=== PATIENT | male | born 1945 | race Caucasian/White ===

== ENCOUNTER 2017-02-11 08:54 | Emergency (ER) | payer MEDICARE, OTHER ==
[~2017-02-11] VITALS: Ht 177.8 cm; Wt 79.4 kg
[~2017-02-11 08:54] MED LIST: [UNRECOGNIZED DRUG - REMARK]
[2017-02-11 09:24] LABS: Urine Bacteria FEW /hpf (None Seen); Urine Blood 2+ /uL (Negative); Urine Mucus FEW (None Seen); Urine WBC 9 /hpf (0 - 3)
[2017-02-11 10:07] LABS: Basophils # (auto) 0 uL; Basophils % (auto) 0.3 % (0.0-2.0); Eosinophils # (auto) 0 uL; Eosinophils % (auto) 0.4 % (0.0-7.0); Hemoglobin 16.9 g/dL (13.5-17.5); Lymphocytes # (auto) 0.8 uL; Lymphocytes % (auto) 7.2 % (10.0-50.0); Mean Corpuscular Hemoglobin 31.3 pg (28.0-32.0); Mean Corpuscular Hgb Conc. 33.8 g/dL (32.0-36.0); Mean Corpuscular Volume 92.9 fL (80.0-100.0); Monocytes # (auto) 0.5 uL; Monocytes % (auto) 4.5 % (0.0-12.0); Neutrophils # (auto) 9.4 uL; Neutrophils % (auto) 87.6 % (37.0-80.0); Platelet Count (auto) 256 10^3/uL (140-450); Red Blood Cells 5.39 10^6/uL (4.5-5.90); Red Cell Distribution Width 14.8 % (11.8-14.3); White Blood Cell 10.7 10^3/uL (4.4-10.8)
[2017-02-11 10:32] LABS: Albumin 3.8 g/dL (3.4-5.0); BUN/Creatinine Ratio 10.9; Bilirubin, Total 0.4 mg/dL (0.2-1.0); Calcium 9.1 mg/dL (8.5-10.1); Potassium 4.5 mmol/L (3.5-5.1); Total Protein 7.6 g/dL (6.4-8.2)
[2017-02-11 23:23] VITALS: BP 173/88
== END 2017-02-11 23:47 | disposition home or self-care (01) ==
LOC: ER 08:54
DX: N13.2 Hydronephrosis with renal and ureteral calculous obstruction (principal); N39.0 Urinary tract infection, site not specified; J44.9 Chronic obstructive pulmonary disease, unspecified; I10 Essential (primary) hypertension; F17.210 Nicotine dependence, cigarettes, uncomplicated
CPT/HCPCS: 36415; 74176; 80053; 81001; 85025

== ENCOUNTER 2020-04-24 05:10 | Inpatient (IN) | payer OTHER ==
[~2020-04-24] VITALS: Ht 177.8 cm; Wt 68.0 kg
[2020-04-24] MEDS ORDERED: IPRATROPIUM BROM 0.5 MG/2.5ML INH SOL HHN ONE (05:30)
[2020-04-24] MEDS ORDERED: ALBUTEROL SULF 2.5 MG/0.5ML(0.5%) NEB SOLN HHN ONE (05:30)
[2020-04-24] MEDS ORDERED: DexAMETHasone INJECTION 10 MG in D5W 5% 50 ML IV ONE (05:30)
[2020-04-24 06:29] LABS: Basophils # (auto) 0 10 ^3/uL (0-0.2); Basophils % (auto) 0.3 % (0.0-2.0); Eosinophils # (auto) 0 10 ^3/uL (0-0.8); Eosinophils % (auto) 0.1 % (0.0-7.0); Hematocrit 33.4 % (41.0-53.0); Hemoglobin 11.3 g/dL (13.5-17.5); Lymphocytes # (auto) 0.2 10 ^3/uL (0.4-5.4); Lymphocytes % (auto) 1.8 % (10.0-50.0); Mean Corpuscular Hemoglobin 32.5 pg (28.0-32.0); Mean Corpuscular Hgb Conc. 33.7 g/dL (32.0-36.0); Mean Corpuscular Volume 96.7 fL (80.0-100.0); Monocytes # (auto) 0.6 10 ^3/uL (0-1.3); Neutrophils # (auto) 11.7 10 ^3/uL (1.6-8.6); Neutrophils % (auto) 92.8 % (37.0-80.0); Platelet Count (auto) 198 10^3/uL (140-450); Red Blood Cells 3.46 10^6/uL (4.5-5.90); Red Cell Distribution Width 18.3 % (11.8-14.3); White Blood Cell 12.7 10^3/uL (4.4-10.8)
[2020-04-24 06:45] LABS: INR 1.56 (0.9-1.15); Partial Thromboplastin Time 40.1 sec (23.0-31.2)
[2020-04-24 06:49] LABS: Albumin 2.2 g/dL (3.4-5.0); Calcium 8.9 mg/dL (8.5-10.1); Magnesium 2.3 mg/dL (1.6-2.6); Potassium 4.1 mmol/L (3.5-5.1)
[2020-04-24 06:51] LABS: Lactic Acid w/Reflex 6.6 mmol/L (0.4-2.0)
[2020-04-24 06:55] LABS: BUN/Creatinine Ratio 20.8; Bilirubin, Total 0.5 mg/dL (0.2-1.0); Total Protein 7.5 g/dL (6.4-8.2)
[2020-04-24] MEDS ORDERED: ALBUMIN 5% 50 ML IV ONE (08:15)
[2020-04-24] MEDS ORDERED: DOCUSATE SOD 100 MG CAP PO PRN (08:15)
[2020-04-24] MEDS ORDERED: ONDANSETRON HCL 4 MG/2 ML VIAL IV PRN (08:15)
[2020-04-24] MEDS ORDERED: ACETAMINOPHEN 325 MG TAB PO PRN (08:15)
[2020-04-24] MEDS ORDERED: NITROGLYCERIN 0.4 MG SL TAB SL PRN (08:15)
[2020-04-24] MEDS ORDERED: HYDROcodone-ACET 5/325MG TAB PO PRN (08:15)
[2020-04-24] MEDS ORDERED: MORPHINE SULF INJ 2 MG/ML SYRINGE 1ML IV PRN (08:15)
[2020-04-24] MEDS: FAMOTIDINE (10MG/ML) 2ML VL IV SCH ×2 (09:14→21:14)
[2020-04-24] MEDS: ZINC SULFATE 220mg CAP or TAB PO SCH (09:14)
[2020-04-24] MEDS: ENOXAPARIN SOD 40 MG/0.4 ML SYRINGE SC SCH (09:15)
[2020-04-24] MEDS: MULTIPLE VITAMIN TAB PO SCH (09:15)
[2020-04-24] MEDS: CHOLECALCIFEROL (VITD3) 1,000UNIT=25mCg TAB PO SCH (09:15)
[2020-04-24] MEDS: ASCORBIC ACID 500 MG TAB PO SCH ×2 (09:15→21:16)
[2020-04-24] MEDS ORDERED: DexAMETHasone INJECTION 10 MG in D5W 5% 50 ML IV SCH (10:00)
[2020-04-24] MEDS ORDERED: IOPAMIDOL 76 % (ISOVUE-370) 100ML BTL IV ONE (11:47)
[2020-04-24] MEDS ORDERED: IPRATROPIUM BROM 0.5 MG/2.5ML INH SOL NEB SCH (12:00)
[2020-04-24] MEDS: ALBUTEROL SULF 2.5 MG/0.5ML(0.5%) NEB SOLN NEB SCH ×4 (12:33→22:51)
[2020-04-24 12:34] LABS: Lactic Acid w/Reflex 2.9 mmol/L (0.4-2.0)
[2020-04-24 14:30] VITALS: BP 104/63
[2020-04-24] MEDS ORDERED: DEXTROSE (50%) 50ML SYRG IV PRN (14:45)
[2020-04-24] MEDS: methylPREDNISolone SOD SUCC 40 MG/ML VL IV SCH ×2 (16:55→21:14)
[2020-04-24] MEDS: PIPERACILLIN-TAZOB 3.375GM 100 ML IV SCH ×2 (16:55→21:14)
[2020-04-24] MEDS: ACCU-CHEK COMFORT CURVE STRIP VI SCH ×2 (18:09→21:16)
[2020-04-24] MEDS: InsuLIN REG 1unit/0.01ml Soln (100units/ml) SC SCH ×2 (18:11→21:04)
[2020-04-24] MEDS: IPRATROPIUM BROM 0.5 MG/2.5ML INH SOL NEB SCH ×2 (18:14→22:51)
[2020-04-24] MEDS: TICAGRELOR 90 MG TAB PO SCH (21:15)
[2020-04-24] MEDS: ATORVASTATIN 20 MG TAB PO SCH (21:15)
[2020-04-24] MEDS: RIVAROXABAN 10 MG TAB PO SCH (21:16)
[2020-04-24 22:34] VITALS: BP 119/66
[2020-04-25 05:00] VITALS: BP 131/71
[2020-04-25] MEDS: InsuLIN REG 1unit/0.01ml Soln (100units/ml) SC SCH ×4 (05:11→22:00)
[2020-04-25] MEDS: ACCU-CHEK COMFORT CURVE STRIP VI SCH ×4 (05:14→22:22)
[2020-04-25] MEDS: PIPERACILLIN-TAZOB 3.375GM 100 ML IV SCH (05:14)
[2020-04-25] MEDS: methylPREDNISolone SOD SUCC 40 MG/ML VL IV SCH ×3 (05:15→22:20)
[2020-04-25] MEDS: IPRATROPIUM BROM 0.5 MG/2.5ML INH SOL NEB SCH ×5 (06:51→22:16)
[2020-04-25] MEDS: ALBUTEROL SULF 2.5 MG/0.5ML(0.5%) NEB SOLN NEB SCH ×5 (06:51→22:16)
[2020-04-25 06:58] LABS: Basophils # (auto) 0 10 ^3/uL (0-0.2); Basophils % (auto) 0.1 % (0.0-2.0); Eosinophils # (auto) 0 10 ^3/uL (0-0.8); Hematocrit 28.6 % (41.0-53.0); Hemoglobin 9.5 g/dL (13.5-17.5); Lymphocytes # (auto) 0.3 10 ^3/uL (0.4-5.4); Lymphocytes % (auto) 2.9 % (10.0-50.0); Mean Corpuscular Hemoglobin 31.6 pg (28.0-32.0); Mean Corpuscular Hgb Conc. 33.3 g/dL (32.0-36.0); Mean Corpuscular Volume 94.8 fL (80.0-100.0); Monocytes # (auto) 0.2 10 ^3/uL (0-1.3); Monocytes % (auto) 2.2 % (0.0-12.0); Neutrophils # (auto) 8.7 10 ^3/uL (1.6-8.6); Neutrophils % (auto) 94.8 % (37.0-80.0); Nucleated Red Blood Cells % 0.1 %; Platelet Count (auto) 223 10^3/uL (140-450); Red Blood Cells 3.02 10^6/uL (4.5-5.90); Red Cell Distribution Width 17.9 % (11.8-14.3); White Blood Cell 9.2 10^3/uL (4.4-10.8)
[2020-04-25 07:06] LABS: INR 1.23 (0.9-1.15)
[2020-04-25 07:20] LABS: Calcium 8.9 mg/dL (8.5-10.1); Magnesium 2.4 mg/dL (1.6-2.6); Potassium 4.3 mmol/L (3.5-5.1)
[2020-04-25 07:27] LABS: Bilirubin, Total 0.4 mg/dL (0.2-1.0); Total Protein 6.7 g/dL (6.4-8.2)
[2020-04-25 07:47] LABS: BUN/Creatinine Ratio 32.6
[2020-04-25 08:00] VITALS: BP 108/59
[2020-04-25] MEDS: ASCORBIC ACID 500 MG TAB PO SCH ×2 (09:57→22:21)
[2020-04-25] MEDS: ZINC SULFATE 220mg CAP or TAB PO SCH (09:57)
[2020-04-25] MEDS: ASPirin-EC 81 mg tab PO SCH (09:57)
[2020-04-25] MEDS: TICAGRELOR 90 MG TAB PO SCH ×2 (09:58→22:21)
[2020-04-25] MEDS: CHOLECALCIFEROL (VITD3) 1,000UNIT=25mCg TAB PO SCH (09:58)
[2020-04-25] MEDS: MULTIPLE VITAMIN TAB PO SCH (09:58)
[2020-04-25] MEDS: RIVAROXABAN 10 MG TAB PO SCH ×2 (09:58→22:22)
[2020-04-25] MEDS: ENOXAPARIN SOD 40 MG/0.4 ML SYRINGE SC SCH (09:59)
[2020-04-25] MEDS ORDERED: CLOPIDOGREL BISULFATE 75 MG TAB PO SCH (10:00)
[2020-04-25] MEDS ORDERED: MEROPENEM 500MG IVPB 50 ML IV SCH (10:00)
[2020-04-25] MEDS ORDERED: MEROPENEM 500MG IVPB 50 ML IV ONE (10:00)
[2020-04-25] MEDS: FAMOTIDINE (10MG/ML) 2ML VL IV SCH ×2 (11:12→22:20)
[2020-04-25 12:00] VITALS: BP 124/65
[2020-04-25] MEDS: MEROPENEM 1GM IVPB 100 ML IV SCH ×2 (12:00→19:23)
[2020-04-25] MEDS ORDERED: ERGOCALCIFEROL 50,000 UNIT(1.25MG) CAP PO SCH (13:45)
[2020-04-25] MEDS ORDERED: TPN PER PHARMACY 0 ML IV SCH (13:45)
[2020-04-25 16:00] VITALS: BP 121/64
[2020-04-25 20:00] VITALS: BP 102/62
[2020-04-25] MEDS ORDERED: AMINO ACID INFUSION IN D10W 2,000 ML IV NR (20:00)
[2020-04-25 22:00] VITALS: BP 102/62
[2020-04-25] MEDS: ATORVASTATIN 20 MG TAB PO SCH (22:21)
[2020-04-25] MEDS: INSULIN LANTUS (GLARGINE) 1 /0.01ml (100units/ml) SC SCH (22:30)
[2020-04-25] MEDS: MORPHINE SULFATE 4 MG/ML SYR/VIAL IV PRN (22:34)
[2020-04-25 23:25] LABS: Urine Amorphous Crystal FEW /hpf (None Seen); Urine Bacteria FEW /hpf (None Seen); Urine Blood Negative /uL (Negative); Urine Hyaline Cast FEW /lpf (0 - 2); Urine Mucus FEW (None Seen); Urine Specific Gravity 1.034 (1.001-1.035); Urine WBC 6 /hpf (0 - 3)
[2020-04-26] MEDS ORDERED: DEXTROSE (50%) 50ML SYRG IV SCH
[2020-04-26] MEDS: InsuLIN REG 1unit/0.01ml Soln (100units/ml) SC SCH ×5 (00:02→23:59)
[2020-04-26] MEDS: MEROPENEM 1GM IVPB 100 ML IV SCH ×3 (03:00→18:49)
[2020-04-26 05:00] VITALS: BP 140/84
[2020-04-26] MEDS: ALBUTEROL SULF 2.5 MG/0.5ML(0.5%) NEB SOLN NEB SCH ×5 (05:59→21:56)
[2020-04-26] MEDS: IPRATROPIUM BROM 0.5 MG/2.5ML INH SOL NEB SCH ×5 (05:59→21:56)
[2020-04-26] MEDS: ACCU-CHEK COMFORT CURVE STRIP VI SCH ×5 (06:13→23:56)
[2020-04-26] MEDS: methylPREDNISolone SOD SUCC 40 MG/ML VL IV SCH ×3 (06:14→22:24)
[2020-04-26 06:21] LABS: Potassium 4.5 mmol/L (3.5-5.1)
[2020-04-26 06:34] LABS: BUN/Creatinine Ratio 37.2; Bilirubin, Total 0.2 mg/dL (0.2-1.0); Calcium 8.7 mg/dL (8.5-10.1); Magnesium 2.3 mg/dL (1.6-2.6); Phosphorus 3.7 mg/dL (2.5-4.90); Pre Albumin 14.1 mg/dL (20.0-40.0); Total Protein 6.1 g/dL (6.4-8.2)
[2020-04-26 08:00] VITALS: BP 123/74
[2020-04-26] MEDS: FAMOTIDINE (10MG/ML) 2ML VL IV SCH ×2 (09:20→22:24)
[2020-04-26] MEDS: CHOLECALCIFEROL (VITD3) 2,000 UNIT CAP/TAB PO SCH (09:22)
[2020-04-26] MEDS: ASCORBIC ACID 500 MG TAB PO SCH ×2 (09:23→22:25)
[2020-04-26] MEDS: ASPirin-EC 81 mg tab PO SCH (09:23)
[2020-04-26] MEDS: ZINC SULFATE 220mg CAP or TAB PO SCH (09:23)
[2020-04-26] MEDS: MULTIPLE VITAMIN TAB PO SCH (09:24)
[2020-04-26] MEDS: TICAGRELOR 90 MG TAB PO SCH ×2 (09:24→22:24)
[2020-04-26] MEDS: RIVAROXABAN 10 MG TAB PO SCH ×2 (09:25→22:25)
[2020-04-26] MEDS ORDERED: FUROSEMIDE 20 MG/2 ML VIAL IV ONE (10:45)
[2020-04-26 11:57] VITALS: BP 141/76
[2020-04-26] MEDS ORDERED: FLORASTOR (S. BOULARDII) 250 MG CAP PO ONE (13:26)
[2020-04-26 16:00] VITALS: BP 124/76
[2020-04-26] MEDS ORDERED: TAM04C PO (16:32)
[2020-04-26] MEDS ORDERED: PRAV20TA3 PO (16:32)
[2020-04-26] MEDS ORDERED: TICA1TAB PO (16:32)
[2020-04-26] MEDS ORDERED: METO25TA5 PO (16:32)
[2020-04-26] MEDS ORDERED: MIRT1TAB38 PO (16:32)
[2020-04-26] MEDS ORDERED: RIVSET PO (16:37)
[2020-04-26] MEDS ORDERED: FLUT1INH4 IN (16:37)
[2020-04-26] MEDS ORDERED: OXYM0.0579 (16:37)
[2020-04-26] MEDS ORDERED: NITR0.4D5 TD (16:37)
[2020-04-26] MEDS ORDERED: LISI-285 PO (16:37)
[2020-04-26] MEDS ORDERED: UMEC1AER IN (16:37)
[2020-04-26 20:00] VITALS: BP 133/78
[2020-04-26] MEDS ORDERED: TPN PER PHARMACY IV NR ×9 (20:00)
[2020-04-26 22:00] VITALS: BP 133/78
[2020-04-26] MEDS: ATORVASTATIN 20 MG TAB PO SCH (22:25)
[2020-04-26] MEDS: INSULIN LANTUS (GLARGINE) 1 /0.01ml (100units/ml) SC SCH (22:28)
[2020-04-27] MEDS: MORPHINE SULFATE 4 MG/ML SYR/VIAL IV PRN (00:05)
[2020-04-27] MEDS: MEROPENEM 1GM IVPB 100 ML IV SCH ×3 (03:04→17:44)
[2020-04-27 04:41] VITALS: BP 144/75
[2020-04-27] MEDS: ACCU-CHEK COMFORT CURVE STRIP VI SCH ×4 (06:00→22:29)
[2020-04-27] MEDS: methylPREDNISolone SOD SUCC 40 MG/ML VL IV SCH ×3 (06:00→22:26)
[2020-04-27] MEDS: InsuLIN REG 1unit/0.01ml Soln (100units/ml) SC SCH ×4 (06:05→22:28)
[2020-04-27 06:39] LABS: Basophils # (auto) 0 10 ^3/uL (0-0.2); Eosinophils # (auto) 0 10 ^3/uL (0-0.8); Hematocrit 26.8 % (41.0-53.0); Hemoglobin 9.1 g/dL (13.5-17.5); Lymphocytes # (auto) 0.2 10 ^3/uL (0.4-5.4); Mean Corpuscular Hemoglobin 32.1 pg (28.0-32.0); Mean Corpuscular Volume 94.3 fL (80.0-100.0); Monocytes # (auto) 0.3 10 ^3/uL (0-1.3); Monocytes % (auto) 4.1 % (0.0-12.0); Neutrophils # (auto) 7.3 10 ^3/uL (1.6-8.6); Neutrophils % (auto) 93.9 % (37.0-80.0); Nucleated Red Blood Cells % 0.1 %; Platelet Count (auto) 225 10^3/uL (140-450); Red Blood Cells 2.85 10^6/uL (4.5-5.90); Red Cell Distribution Width 17.9 % (11.8-14.3); White Blood Cell 7.8 10^3/uL (4.4-10.8)
[2020-04-27 06:46] LABS: Calcium 8.1 mg/dL (8.5-10.1); Potassium 3.9 mmol/L (3.5-5.1)
[2020-04-27 06:51] LABS: Bilirubin, Total 0.3 mg/dL (0.2-1.0); Phosphorus 2.7 mg/dL (2.5-4.90)
[2020-04-27] MEDS: IPRATROPIUM BROM 0.5 MG/2.5ML INH SOL NEB SCH ×5 (07:00→22:00)
[2020-04-27] MEDS: ALBUTEROL SULF 2.5 MG/0.5ML(0.5%) NEB SOLN NEB SCH ×5 (07:00→22:00)
[2020-04-27 08:57] VITALS: BP 150/79
[2020-04-27] MEDS: ZINC SULFATE 220mg CAP or TAB PO SCH (09:04)
[2020-04-27] MEDS: ASPirin-EC 81 mg tab PO SCH (09:04)
[2020-04-27] MEDS: TICAGRELOR 90 MG TAB PO SCH ×2 (09:04→22:26)
[2020-04-27] MEDS: FAMOTIDINE (10MG/ML) 2ML VL IV SCH ×2 (09:04→22:24)
[2020-04-27] MEDS: FLORASTOR (S. BOULARDII) 250 MG CAP PO SCH (09:05)
[2020-04-27] MEDS: CHOLECALCIFEROL (VITD3) 2,000 UNIT CAP/TAB PO SCH (09:05)
[2020-04-27] MEDS: ASCORBIC ACID 500 MG TAB PO SCH ×2 (09:05→22:26)
[2020-04-27] MEDS: MULTIPLE VITAMIN TAB PO SCH (09:05)
[2020-04-27] MEDS: RIVAROXABAN 10 MG TAB PO SCH ×2 (09:06→22:27)
[2020-04-27] MEDS ORDERED: SACC250C PO (10:36)
[2020-04-27] MEDS ORDERED: CHOL1CAP47 PO (10:36)
[2020-04-27] MEDS ORDERED: PANT40TA2 PO (10:48)
[2020-04-27] MEDS ORDERED: PRED20TA2 PO (10:59)
[2020-04-27 12:43] VITALS: BP 156/82
[2020-04-27 16:23] VITALS: BP 141/76
[2020-04-27 16:40] VITALS: BP 141/80
[2020-04-27] MEDS ORDERED: TPN PER PHARMACY IV NR ×12 (20:00)
[2020-04-27 21:46] VITALS: BP 122/73
[2020-04-27] MEDS: ATORVASTATIN 20 MG TAB PO SCH (22:26)
[2020-04-27] MEDS: INSULIN LANTUS (GLARGINE) 1 /0.01ml (100units/ml) SC SCH (22:28)
[2020-04-28] MEDS: MEROPENEM 1GM IVPB 100 ML IV SCH ×2 (03:21→10:25)
[2020-04-28 05:00] VITALS: BP 150/81
[2020-04-28] MEDS: IPRATROPIUM BROM 0.5 MG/2.5ML INH SOL NEB SCH (06:38)
[2020-04-28] MEDS: ALBUTEROL SULF 2.5 MG/0.5ML(0.5%) NEB SOLN NEB SCH (06:38)
[2020-04-28] MEDS: methylPREDNISolone SOD SUCC 40 MG/ML VL IV SCH (06:57)
[2020-04-28] MEDS: InsuLIN REG 1unit/0.01ml Soln (100units/ml) SC SCH ×2 (06:58→12:13)
[2020-04-28] MEDS: ACCU-CHEK COMFORT CURVE STRIP VI SCH ×2 (06:59→12:12)
[2020-04-28 07:18] LABS: Albumin 1.9 g/dL (3.4-5.0); Calcium 8.1 mg/dL (8.5-10.1); Magnesium 2.2 mg/dL (1.6-2.6)
[2020-04-28 07:23] LABS: BUN/Creatinine Ratio 33.3; Bilirubin, Total 0.3 mg/dL (0.2-1.0); Phosphorus 2.6 mg/dL (2.5-4.90); Total Protein 5.8 g/dL (6.4-8.2)
[2020-04-28 09:00] VITALS: BP 153/76
[2020-04-28] MEDS: ASPirin-EC 81 mg tab PO SCH (10:00)
[2020-04-28] MEDS: FAMOTIDINE (10MG/ML) 2ML VL IV SCH (10:00)
[2020-04-28] MEDS: TICAGRELOR 90 MG TAB PO SCH (10:00)
[2020-04-28] MEDS: ASCORBIC ACID 500 MG TAB PO SCH (10:00)
[2020-04-28] MEDS: MULTIPLE VITAMIN TAB PO SCH (10:00)
[2020-04-28] MEDS: ZINC SULFATE 220mg CAP or TAB PO SCH (10:00)
[2020-04-28] MEDS: FLORASTOR (S. BOULARDII) 250 MG CAP PO SCH (10:00)
[2020-04-28] MEDS: RIVAROXABAN 10 MG TAB PO SCH (10:01)
[2020-04-28] MEDS: CHOLECALCIFEROL (VITD3) 2,000 UNIT CAP/TAB PO SCH (10:01)
[2020-04-28 13:00] VITALS: BP 149/68
== END 2020-04-28 13:55 | disposition home health service (06) | DRG 871 ==
LOC: ER 05:10 → EDBD 05:10 → TELE 05:11 → TELE-CENTR 20:30
PROVIDERS: ADMIT Nurse Practitioner Family; ATTEND Internal Medicine
PROC: 3E0436Z Introduction of Nutritional Substance into Central Vein, Percutaneous Approach (ICD-10-PCS; principal; 2020-04-26)
DX: A41.9 Sepsis, unspecified organism (principal); J96.21 Acute and chronic respiratory failure with hypoxia; J18.9 Pneumonia, unspecified organism; I21.A1 Myocardial infarction type 2; D68.9 Coagulation defect, unspecified; C34.90 Malignant neoplasm of unspecified part of unspecified bronchus or lung; C25.9 Malignant neoplasm of pancreas, unspecified; C78.7 Secondary malignant neoplasm of liver and intrahepatic bile duct; J84.10 Pulmonary fibrosis, unspecified; E88.09 Other disorders of plasma-protein metabolism, not elsewhere classified; E11.65 Type 2 diabetes mellitus with hyperglycemia; Z86.16 Personal history of COVID-19; I25.10 Atherosclerotic heart disease of native coronary artery without angina pectoris; Z20.822 Contact with and (suspected) exposure to COVID-19; D63.8 Anemia in other chronic diseases classified elsewhere; E55.9 Vitamin D deficiency, unspecified; F17.210 Nicotine dependence, cigarettes, uncomplicated; I10 Essential (primary) hypertension; J43.9 Emphysema, unspecified; Z79.84 Long term (current) use of oral hypoglycemic drugs; Z80.8 Family history of malignant neoplasm of other organs or systems; Z95.5 Presence of coronary angioplasty implant and graft; Z99.81 Dependence on supplemental oxygen
CPT/HCPCS: 36415; 36600; 71045; 71275; 80053; 80061; 81001; 82040; 82306; 82805; 82962; 83036; 83605; 83735; 83880; 84100; 84443; 84478; 84484; 85025; 85379; 85610; 85730; 86141; 87040; 87070; 87077; 87081; 87205; 87426; 93005; 93970; 94640; 96365; 96367; 96372; G0378; J1100; J1815; J2185; J2543; J3490; J7060; J7131

== ENCOUNTER 2020-05-13 11:00 | Inpatient (IN) | payer OTHER ==
[~2020-05-13] VITALS: Ht 172.7 cm; Wt 68.5 kg
[~2020-05-13 11:00] MED LIST changes: +CHOL1CAP47 PO; +FLUT1INH4 IN; +LISI-285 PO; +METO25TA5 PO; +MIRT1TAB38 PO; +NITR0.4D5 TD; +OXYM0.0579; +PANT40TA2 PO; +PRAV20TA3 PO; +PRED20TA2 PO; +RIVSET PO; +SACC250C PO; +TAM04C PO; +TICA1TAB PO; +UMEC1AER IN; -[UNRECOGNIZED DRUG - REMARK]
[2020-05-13] MEDS ORDERED: SODIUM CHLORIDE 0.9% 1,000 ML IV ONE ×2 (11:45→18:00)
[2020-05-13] MEDS ORDERED: ACETAMINOPHEN 500 MG TAB PO ONE (12:00)
[2020-05-13 12:28] LABS: Basophils # (auto) 0 10 ^3/uL (0-0.2); Basophils % (auto) 0.3 % (0.0-2.0); Eosinophils # (auto) 0.3 10 ^3/uL (0-0.8); Eosinophils % (auto) 3.5 % (0.0-7.0); Hematocrit 31.1 % (41.0-53.0); Hemoglobin 10.2 g/dL (13.5-17.5); Lymphocytes # (auto) 0.3 10 ^3/uL (0.4-5.4); Lymphocytes % (auto) 3.4 % (10.0-50.0); Mean Corpuscular Hemoglobin 30.4 pg (28.0-32.0); Mean Corpuscular Hgb Conc. 32.7 g/dL (32.0-36.0); Monocytes # (auto) 0.4 10 ^3/uL (0-1.3); Monocytes % (auto) 5.6 % (0.0-12.0); Neutrophils # (auto) 6.9 10 ^3/uL (1.6-8.6); Neutrophils % (auto) 87.2 % (37.0-80.0); Nucleated Red Blood Cells % 0.1 %; Platelet Count (auto) 199 10^3/uL (140-450); Red Blood Cells 3.35 10^6/uL (4.5-5.90); Red Cell Distribution Width 17.5 % (11.8-14.3); White Blood Cell 7.9 10^3/uL (4.4-10.8)
[2020-05-13 12:45] LABS: Albumin 2.4 g/dL (3.4-5.0); BUN/Creatinine Ratio 12.5; Calcium 8.4 mg/dL (8.5-10.1); Magnesium 1.8 mg/dL (1.6-2.6)
[2020-05-13 12:47] LABS: INR 1.24 (0.9-1.15); Lactic Acid w/Reflex 2.4 mmol/L (0.4-2.0); Partial Thromboplastin Time 34.9 sec (23.0-31.2)
[2020-05-13 12:50] LABS: Bilirubin, Total 0.4 mg/dL (0.2-1.0); Total Protein 7.1 g/dL (6.4-8.2)
[2020-05-13 13:43] LABS: Urine Amorphous Crystal FEW /hpf (None Seen); Urine Bacteria FEW /hpf (None Seen); Urine Blood TRACE /uL (Negative); Urine Specific Gravity 1.013 (1.001-1.035); Urine WBC 2 /hpf (0 - 3)
[2020-05-13] MEDS ORDERED: cefTRIAXone 1GM/50ML D5W 50 ML IV ONE ×2 (15:30)
[2020-05-13] MEDS: ALBUTEROL SULF 2.5 MG/0.5ML(0.5%) NEB SOLN NEB SCH (18:00)
[2020-05-13] MEDS ORDERED: MORPHINE SULF INJ 2 MG/ML SYRINGE 1ML IV PRN (18:00)
[2020-05-13] MEDS ORDERED: VANCOMYCIN PER PHARMACY 0 MG IV SCH (18:00)
[2020-05-13] MEDS ORDERED: NITROGLYCERIN 0.4 MG SL TAB SL PRN (18:00)
[2020-05-13] MEDS: IPRATROPIUM BROM 0.5 MG/2.5ML INH SOL NEB SCH (18:00)
[2020-05-13] MEDS ORDERED: ONDANSETRON HCL 4 MG/2 ML VIAL IV PRN (18:00)
[2020-05-13] MEDS ORDERED: BUDESONIDE (INHALATION) 0.5 MG/2 ML NEB ONE (18:18)
[2020-05-13] MEDS ORDERED: IPRATROPIUM BROM 0.5 MG/2.5ML INH SOL ONE (18:18)
[2020-05-13] MEDS ORDERED: ALBUTEROL SULF 2.5 MG/0.5ML(0.5%) NEB SOLN ONE (18:18)
[2020-05-13] MEDS: TAMSULOSIN HYDROCHLORIDE 0.4 MG CAP PO SCH (18:29)
[2020-05-13 18:42] VITALS: BP 130/93
[2020-05-13] MEDS ORDERED: IOHEXOL 350 MG/ML 100ML IJ ONE ×2 (18:56→19:18)
[2020-05-13] MEDS: VANCOMYCIN 1GM/250ML 250 ML IV SCH (20:33)
[2020-05-13 22:10] VITALS: BP 154/79
[2020-05-13] MEDS: MEROPENEM 1GM IVPB 100 ML IV SCH (22:39)
[2020-05-13] MEDS: ACETAMINOPHEN 325 MG TAB PO PRN (22:39)
[2020-05-13] MEDS: METOPROLOL TARTRATE 25 MG TAB PO SCH (22:40)
[2020-05-13] MEDS: TICAGRELOR 90 MG TAB PO SCH (23:21)
[2020-05-13 23:39] VITALS: BP 154/79
[2020-05-14] MEDS: VANCOMYCIN 1GM/250ML 250 ML IV SCH (05:00)
[2020-05-14 05:04] VITALS: BP 116/66
[2020-05-14] MEDS: MEROPENEM 1GM IVPB 100 ML IV SCH ×3 (05:40→22:20)
[2020-05-14] MEDS: ALBUTEROL SULF 2.5 MG/0.5ML(0.5%) NEB SOLN NEB SCH ×3 (05:53→17:42)
[2020-05-14] MEDS: IPRATROPIUM BROM 0.5 MG/2.5ML INH SOL NEB SCH ×3 (05:53→17:41)
[2020-05-14] MEDS: BUDESONIDE (INHALATION) 0.5 MG/2 ML NEB NEB SCH ×2 (05:54→17:42)
[2020-05-14 07:24] LABS: Basophils # (auto) 0 10 ^3/uL (0-0.2); Basophils % (auto) 0.2 % (0.0-2.0); Eosinophils # (auto) 0.1 10 ^3/uL (0-0.8); Eosinophils % (auto) 1.9 % (0.0-7.0); Hematocrit 31.2 % (41.0-53.0); Hemoglobin 10.4 g/dL (13.5-17.5); Lymphocytes # (auto) 0.2 10 ^3/uL (0.4-5.4); Lymphocytes % (auto) 3.2 % (10.0-50.0); Mean Corpuscular Hemoglobin 30.8 pg (28.0-32.0); Mean Corpuscular Hgb Conc. 33.4 g/dL (32.0-36.0); Mean Corpuscular Volume 92.5 fL (80.0-100.0); Monocytes # (auto) 0.4 10 ^3/uL (0-1.3); Monocytes % (auto) 6.9 % (0.0-12.0); Neutrophils # (auto) 5.5 10 ^3/uL (1.6-8.6); Neutrophils % (auto) 87.8 % (37.0-80.0); Platelet Count (auto) 156 10^3/uL (140-450); Red Blood Cells 3.37 10^6/uL (4.5-5.90); Red Cell Distribution Width 17.6 % (11.8-14.3); White Blood Cell 6.3 10^3/uL (4.4-10.8)
[2020-05-14 07:43] LABS: BUN/Creatinine Ratio 15.4; Calcium 8.5 mg/dL (8.5-10.1); Potassium 4.3 mmol/L (3.5-5.1)
[2020-05-14] MEDS: Ensure Enlive Chocolate 8oz Bottle PO SCH ×3 (08:00→18:00)
[2020-05-14 09:00] VITALS: BP 123/60
[2020-05-14] MEDS: ACETAMINOPHEN 325 MG TAB PO PRN (09:55)
[2020-05-14] MEDS: PANTOPRAZOLE 40 MG TAB PO SCH (09:55)
[2020-05-14] MEDS: METOPROLOL TARTRATE 25 MG TAB PO SCH ×2 (09:56→22:00)
[2020-05-14] MEDS: FLORASTOR (S. BOULARDII) 250 MG CAP PO SCH (09:56)
[2020-05-14] MEDS: FAMOTIDINE 20 MG TAB PO SCH (09:56)
[2020-05-14] MEDS: TICAGRELOR 90 MG TAB PO SCH ×2 (09:56→22:21)
[2020-05-14] MEDS: methylPREDNISolone SOD SUCC 40 MG/ML VL IV SCH ×2 (11:14→22:20)
[2020-05-14] MEDS ORDERED: SODIUM CHLORIDE 0.9% 500 ML IV ONE (11:45)
[2020-05-14] MEDS ORDERED: PNEUMOCOCCAL VACC POLYS 25 MCG/0.5 ML VIAL IM ONE (12:00)
[2020-05-14 12:24] VITALS: BP 88/48
[2020-05-14] MEDS ORDERED: VANCOMYCIN 1GM/250ML 250 ML IV SCH ×2 (13:00→16:00)
[2020-05-14 17:00] VITALS: BP 95/54
[2020-05-14] MEDS: RIVAROXABAN 20 MG TAB PO SCH (18:27)
[2020-05-14] MEDS: TAMSULOSIN HYDROCHLORIDE 0.4 MG CAP PO SCH (18:27)
[2020-05-14 22:00] VITALS: BP 108/51
[2020-05-14] MEDS: PRAVASTATIN SODIUM 20 MG TAB PO SCH (22:22)
[2020-05-15] MEDS: VANCOMYCIN 1GM/250ML 250 ML IV SCH ×2 (01:51→11:11)
[2020-05-15 05:00] VITALS: BP 120/69
[2020-05-15] MEDS: MEROPENEM 1GM IVPB 100 ML IV SCH ×3 (05:47→22:40)
[2020-05-15 07:04] LABS: Basophils # (auto) 0 10 ^3/uL (0-0.2); Eosinophils # (auto) 0 10 ^3/uL (0-0.8); Hematocrit 28.3 % (41.0-53.0); Hemoglobin 9.5 g/dL (13.5-17.5); Lymphocytes # (auto) 0.2 10 ^3/uL (0.4-5.4); Lymphocytes % (auto) 5.4 % (10.0-50.0); Mean Corpuscular Hemoglobin 30.7 pg (28.0-32.0); Mean Corpuscular Hgb Conc. 33.7 g/dL (32.0-36.0); Mean Corpuscular Volume 91.1 fL (80.0-100.0); Monocytes # (auto) 0.1 10 ^3/uL (0-1.3); Monocytes % (auto) 3.1 % (0.0-12.0); Neutrophils # (auto) 4.1 10 ^3/uL (1.6-8.6); Neutrophils % (auto) 91.5 % (37.0-80.0); Platelet Count (auto) 178 10^3/uL (140-450); Red Blood Cells 3.11 10^6/uL (4.5-5.90); Red Cell Distribution Width 17.4 % (11.8-14.3); White Blood Cell 4.4 10^3/uL (4.4-10.8)
[2020-05-15] MEDS: IPRATROPIUM BROM 0.5 MG/2.5ML INH SOL NEB SCH ×4 (07:05→23:05)
[2020-05-15] MEDS: ALBUTEROL SULF 2.5 MG/0.5ML(0.5%) NEB SOLN NEB SCH ×4 (07:05→23:05)
[2020-05-15 07:25] LABS: Calcium 8.4 mg/dL (8.5-10.1); Potassium 3.9 mmol/L (3.5-5.1)
[2020-05-15] MEDS: Ensure Enlive Chocolate 8oz Bottle PO SCH ×3 (08:00→17:47)
[2020-05-15 09:00] VITALS: BP 116/64
[2020-05-15] MEDS: methylPREDNISolone SOD SUCC 40 MG/ML VL IV SCH ×2 (09:58→22:40)
[2020-05-15] MEDS: FLORASTOR (S. BOULARDII) 250 MG CAP PO SCH (09:58)
[2020-05-15] MEDS: TICAGRELOR 90 MG TAB PO SCH ×2 (09:59→22:41)
[2020-05-15] MEDS: PANTOPRAZOLE 40 MG TAB PO SCH (09:59)
[2020-05-15] MEDS: FAMOTIDINE 20 MG TAB PO SCH (09:59)
[2020-05-15] MEDS: METOPROLOL TARTRATE 25 MG TAB PO SCH ×2 (10:00→22:41)
[2020-05-15] MEDS: BUDESONIDE (INHALATION) 0.5 MG/2 ML NEB NEB SCH ×2 (12:20→19:38)
[2020-05-15 13:00] VITALS: BP 122/59
[2020-05-15] MEDS ORDERED: MICAFUNGIN SODIUM 100 MG in SODIUM CHL 0.9% 100 ML IV SCH (13:00)
[2020-05-15] MEDS: MICAFUNGIN SODIUM 100 MG in SODIUM CHL 0.9% 100 ML IV ONE ×2 (13:28→13:31)
[2020-05-15] MEDS: MICAFUNGIN SODIUM 100 MG in SODIUM CHL 0.9% 100 ML IV SCH (13:29)
[2020-05-15 17:00] VITALS: BP 122/77
[2020-05-15] MEDS: TAMSULOSIN HYDROCHLORIDE 0.4 MG CAP PO SCH (17:08)
[2020-05-15] MEDS: RIVAROXABAN 20 MG TAB PO SCH (17:09)
[2020-05-15 22:00] VITALS: BP 124/63
[2020-05-15] MEDS: PRAVASTATIN SODIUM 20 MG TAB PO SCH (22:41)
[2020-05-16 05:00] VITALS: BP 137/77
[2020-05-16] MEDS: MEROPENEM 1GM IVPB 100 ML IV SCH ×3 (06:26→23:56)
[2020-05-16] MEDS: IPRATROPIUM BROM 0.5 MG/2.5ML INH SOL NEB SCH ×3 (07:42→18:52)
[2020-05-16] MEDS: ALBUTEROL SULF 2.5 MG/0.5ML(0.5%) NEB SOLN NEB SCH ×3 (07:42→18:52)
[2020-05-16 08:00] VITALS: BP 128/69
[2020-05-16] MEDS: BUDESONIDE (INHALATION) 0.5 MG/2 ML NEB NEB SCH ×2 (09:24→18:52)
[2020-05-16] MEDS: Ensure Enlive Chocolate 8oz Bottle PO SCH ×3 (09:33→18:10)
[2020-05-16] MEDS: methylPREDNISolone SOD SUCC 40 MG/ML VL IV SCH ×2 (09:33→23:59)
[2020-05-16] MEDS: FAMOTIDINE 20 MG TAB PO SCH (09:34)
[2020-05-16] MEDS: METOPROLOL TARTRATE 25 MG TAB PO SCH (09:34)
[2020-05-16] MEDS: FLORASTOR (S. BOULARDII) 250 MG CAP PO SCH (09:34)
[2020-05-16] MEDS: TICAGRELOR 90 MG TAB PO SCH (09:34)
[2020-05-16] MEDS: PANTOPRAZOLE 40 MG TAB PO SCH (09:35)
[2020-05-16] MEDS: VANCOMYCIN 1GM/250ML 250 ML IV SCH (09:35)
[2020-05-16 10:46] LABS: Basophils # (auto) 0 10 ^3/uL (0-0.2); Basophils % (auto) 0.2 % (0.0-2.0); Eosinophils # (auto) 0 10 ^3/uL (0-0.8); Hematocrit 26.5 % (41.0-53.0); Hemoglobin 8.9 g/dL (13.5-17.5); Lymphocytes # (auto) 0.2 10 ^3/uL (0.4-5.4); Lymphocytes % (auto) 3.1 % (10.0-50.0); Mean Corpuscular Hemoglobin 30.4 pg (28.0-32.0); Mean Corpuscular Hgb Conc. 33.4 g/dL (32.0-36.0); Mean Corpuscular Volume 91.2 fL (80.0-100.0); Monocytes # (auto) 0.4 10 ^3/uL (0-1.3); Monocytes % (auto) 4.6 % (0.0-12.0); Neutrophils # (auto) 7.1 10 ^3/uL (1.6-8.6); Neutrophils % (auto) 92.1 % (37.0-80.0); Nucleated Red Blood Cells % 0.1 %; Platelet Count (auto) 202 10^3/uL (140-450); Red Blood Cells 2.91 10^6/uL (4.5-5.90); Red Cell Distribution Width 17.4 % (11.8-14.3); White Blood Cell 7.7 10^3/uL (4.4-10.8)
[2020-05-16 13:00] VITALS: BP 136/79
[2020-05-16] MEDS: MICAFUNGIN SODIUM 100 MG in SODIUM CHL 0.9% 100 ML IV SCH (13:08)
[2020-05-16 17:24] VITALS: BP 141/72
[2020-05-16] MEDS: RIVAROXABAN 20 MG TAB PO SCH ×2 (18:00→18:10)
[2020-05-16] MEDS: TAMSULOSIN HYDROCHLORIDE 0.4 MG CAP PO SCH (18:10)
[2020-05-16 22:00] VITALS: BP 121/66
[2020-05-17] MEDS: METOPROLOL TARTRATE 25 MG TAB PO SCH ×3 (00:02→22:13)
[2020-05-17] MEDS: PRAVASTATIN SODIUM 20 MG TAB PO SCH ×2 (00:02→22:09)
[2020-05-17 05:00] VITALS: BP 139/70
[2020-05-17] MEDS: MEROPENEM 1GM IVPB 100 ML IV SCH ×4 (06:09→21:37)
[2020-05-17] MEDS: IPRATROPIUM BROM 0.5 MG/2.5ML INH SOL NEB SCH ×3 (07:32→19:05)
[2020-05-17] MEDS: ALBUTEROL SULF 2.5 MG/0.5ML(0.5%) NEB SOLN NEB SCH ×3 (07:32→19:05)
[2020-05-17 07:34] LABS: Basophils # (auto) 0 10 ^3/uL (0-0.2); Basophils % (auto) 0.1 % (0.0-2.0); Eosinophils # (auto) 0 10 ^3/uL (0-0.8); Hematocrit 26.4 % (41.0-53.0); Hemoglobin 8.9 g/dL (13.5-17.5); Lymphocytes # (auto) 0.3 10 ^3/uL (0.4-5.4); Lymphocytes % (auto) 5.5 % (10.0-50.0); Mean Corpuscular Hemoglobin 30.8 pg (28.0-32.0); Mean Corpuscular Hgb Conc. 33.8 g/dL (32.0-36.0); Monocytes # (auto) 0.3 10 ^3/uL (0-1.3); Monocytes % (auto) 5.8 % (0.0-12.0); Neutrophils # (auto) 4.8 10 ^3/uL (1.6-8.6); Neutrophils % (auto) 88.6 % (37.0-80.0); Nucleated Red Blood Cells % 0.2 %; Platelet Count (auto) 198 10^3/uL (140-450); Red Cell Distribution Width 16.9 % (11.8-14.3); White Blood Cell 5.5 10^3/uL (4.4-10.8)
[2020-05-17 07:52] LABS: BUN/Creatinine Ratio 30.4; Calcium 8.1 mg/dL (8.5-10.1); Potassium 3.7 mmol/L (3.5-5.1)
[2020-05-17] MEDS: Ensure Enlive Chocolate 8oz Bottle PO SCH ×3 (08:00→18:23)
[2020-05-17 09:02] VITALS: BP 136/81
[2020-05-17] MEDS: methylPREDNISolone SOD SUCC 40 MG/ML VL IV SCH ×2 (09:45→22:08)
[2020-05-17] MEDS: FLORASTOR (S. BOULARDII) 250 MG CAP PO SCH (09:45)
[2020-05-17] MEDS: TICAGRELOR 90 MG TAB PO SCH ×2 (09:45)
[2020-05-17] MEDS: VANCOMYCIN 1GM/250ML 250 ML IV SCH (09:45)
[2020-05-17] MEDS: PANTOPRAZOLE 40 MG TAB PO SCH (09:46)
[2020-05-17] MEDS: FAMOTIDINE 20 MG TAB PO SCH (09:46)
[2020-05-17] MEDS: BUDESONIDE (INHALATION) 0.5 MG/2 ML NEB NEB SCH ×2 (09:55→22:00)
[2020-05-17] MEDS: MICAFUNGIN SODIUM 100 MG in SODIUM CHL 0.9% 100 ML IV SCH (12:37)
[2020-05-17 13:00] VITALS: BP 153/73
[2020-05-17] MEDS ORDERED: LIDOCAINE W/ EPINEPHRINE 1% 20ML VIAL ONE (13:57)
[2020-05-17] MEDS ORDERED: BUPIVACAINE 0.25% INJ 50ML VIAL ONE (13:57)
[2020-05-17] MEDS ORDERED: MORPHINE SULFATE 4 MG/ML SYR/VIAL IV PRN (14:00)
[2020-05-17] MEDS ORDERED: ePHEDrine SULFATE 50 MG/ML AMP IV PRN ×2 (14:00→15:30)
[2020-05-17] MEDS ORDERED: HYDROmorphone HCL 2 MG/ML VL IV PRN ×2 (14:00→15:30)
[2020-05-17] MEDS ORDERED: MIDAZOLAM HCL 1MG/1ML-2 ML VIAL IV PRN ×2 (14:00→15:30)
[2020-05-17] MEDS ORDERED: LABETALOL HCL 5 MG/ML 4ML SYRINGE IV PRN ×2 (14:00→15:30)
[2020-05-17] MEDS ORDERED: ONDANSETRON HCL 4 MG/2 ML VIAL IV PRN ×2 (14:00→15:30)
[2020-05-17] MEDS ORDERED: fentaNYL CITRATE 100 MCG/2 ML VL ONE (14:34)
[2020-05-17] MEDS ORDERED: MIDAZOLAM HCL 1MG/1ML-2 ML VIAL ONE (14:35)
[2020-05-17] MEDS ORDERED: DexAMETHasone SOD PHOS 10MG/1ML VIAL INJ ONE (14:53)
[2020-05-17] MEDS ORDERED: PROPOFOL 10 MG/ML 20 ML IV ONE (14:53)
[2020-05-17] MEDS ORDERED: MORPHINE SULF INJ 2 MG/ML SYRINGE 1ML IV PRN (15:30)
[2020-05-17 16:56] VITALS: BP 161/71
[2020-05-17] MEDS: RIVAROXABAN 20 MG TAB PO SCH (18:07)
[2020-05-17] MEDS: TAMSULOSIN HYDROCHLORIDE 0.4 MG CAP PO SCH (18:07)
[2020-05-17 22:00] VITALS: BP 130/57
[2020-05-17 23:00] VITALS: BP 130/57
[2020-05-18 05:00] VITALS: BP 125/68
[2020-05-18] MEDS: IPRATROPIUM BROM 0.5 MG/2.5ML INH SOL NEB SCH ×3 (05:36→18:49)
[2020-05-18] MEDS: ALBUTEROL SULF 2.5 MG/0.5ML(0.5%) NEB SOLN NEB SCH ×3 (05:36→18:49)
[2020-05-18] MEDS: BUDESONIDE (INHALATION) 0.5 MG/2 ML NEB NEB SCH ×2 (05:38→18:49)
[2020-05-18 06:00] LABS: Basophils # (auto) 0 10 ^3/uL (0-0.2); Eosinophils # (auto) 0 10 ^3/uL (0-0.8); Hematocrit 25.7 % (41.0-53.0); Hemoglobin 8.9 g/dL (13.5-17.5); Lymphocytes # (auto) 0.6 10 ^3/uL (0.4-5.4); Lymphocytes % (auto) 8.7 % (10.0-50.0); Mean Corpuscular Hemoglobin 31.1 pg (28.0-32.0); Mean Corpuscular Hgb Conc. 34.4 g/dL (32.0-36.0); Mean Corpuscular Volume 90.5 fL (80.0-100.0); Monocytes # (auto) 0.8 10 ^3/uL (0-1.3); Monocytes % (auto) 11.8 % (0.0-12.0); Neutrophils # (auto) 5.5 10 ^3/uL (1.6-8.6); Neutrophils % (auto) 79.5 % (37.0-80.0); Nucleated Red Blood Cells % 0.1 %; Platelet Count (auto) 195 10^3/uL (140-450); Red Blood Cells 2.84 10^6/uL (4.5-5.90); Red Cell Distribution Width 17.1 % (11.8-14.3); White Blood Cell 6.9 10^3/uL (4.4-10.8)
[2020-05-18 06:36] LABS: Calcium 8.1 mg/dL (8.5-10.1); Potassium 3.2 mmol/L (3.5-5.1)
[2020-05-18 06:38] LABS: BUN/Creatinine Ratio 32.8
[2020-05-18] MEDS: TICAGRELOR 90 MG TAB PO SCH ×3 (06:50→21:52)
[2020-05-18] MEDS: MEROPENEM 1GM IVPB 100 ML IV SCH ×3 (06:52→21:52)
[2020-05-18] MEDS: Ensure Enlive Chocolate 8oz Bottle PO SCH ×3 (08:00→18:00)
[2020-05-18] MEDS: FLORASTOR (S. BOULARDII) 250 MG CAP PO SCH (08:42)
[2020-05-18] MEDS: PANTOPRAZOLE 40 MG TAB PO SCH (08:43)
[2020-05-18] MEDS: methylPREDNISolone SOD SUCC 40 MG/ML VL IV SCH (08:44)
[2020-05-18] MEDS: FAMOTIDINE 20 MG TAB PO SCH (08:47)
[2020-05-18] MEDS: VANCOMYCIN 1GM/250ML 250 ML IV SCH (08:48)
[2020-05-18] MEDS: METOPROLOL TARTRATE 25 MG TAB PO SCH ×2 (08:57→21:52)
[2020-05-18 09:00] VITALS: BP 123/71
[2020-05-18 13:00] VITALS: BP 133/67
[2020-05-18] MEDS: MICAFUNGIN SODIUM 100 MG in SODIUM CHL 0.9% 100 ML IV SCH (13:20)
[2020-05-18] MEDS ORDERED: PNEUMOCOCCAL VACC POLYS 25 MCG/0.5 ML VIAL IM ONE (13:30)
[2020-05-18 17:00] VITALS: BP 137/83
[2020-05-18] MEDS: RIVAROXABAN 20 MG TAB PO SCH (18:39)
[2020-05-18] MEDS: TAMSULOSIN HYDROCHLORIDE 0.4 MG CAP PO SCH (18:39)
[2020-05-18] MEDS: PRAVASTATIN SODIUM 20 MG TAB PO SCH (21:52)
[2020-05-18 22:00] VITALS: BP 148/80
[2020-05-19 05:00] VITALS: BP 147/84
[2020-05-19] MEDS: IPRATROPIUM BROM 0.5 MG/2.5ML INH SOL NEB SCH ×3 (06:55→21:12)
[2020-05-19] MEDS: ALBUTEROL SULF 2.5 MG/0.5ML(0.5%) NEB SOLN NEB SCH ×3 (06:55→21:12)
[2020-05-19] MEDS: BUDESONIDE (INHALATION) 0.5 MG/2 ML NEB NEB SCH ×2 (06:55→21:12)
[2020-05-19] MEDS: MEROPENEM 1GM IVPB 100 ML IV SCH ×3 (07:03→22:03)
[2020-05-19 07:04] LABS: Calcium 8.2 mg/dL (8.5-10.1)
[2020-05-19 07:22] LABS: Hematocrit 28.9 % (41.0-53.0); Hemoglobin 9.7 g/dL (13.5-17.5); Mean Corpuscular Hemoglobin 30.5 pg (28.0-32.0); Mean Corpuscular Hgb Conc. 33.5 g/dL (32.0-36.0); Mean Corpuscular Volume 91.3 fL (80.0-100.0); Platelet Count (auto) 231 10^3/uL (140-450); Red Blood Cells 3.16 10^6/uL (4.5-5.90); Red Cell Distribution Width 16.9 % (11.8-14.3); White Blood Cell 9.1 10^3/uL (4.4-10.8)
[2020-05-19 07:36] LABS: Potassium 2.9 mmol/L (3.5-5.1)
[2020-05-19 07:41] LABS: Basophils % (manual) 0 (0.0-2.0); Blast Cells 0; Eosinophils % (manual) 0 (0-7); Metamyelocytes % 0; Promyelocytes % 0; Reactive Lymphocytes 0
[2020-05-19] MEDS: Ensure Enlive Chocolate 8oz Bottle PO SCH ×3 (08:09→18:26)
[2020-05-19] MEDS: PANTOPRAZOLE 40 MG TAB PO SCH (08:26)
[2020-05-19] MEDS: FLORASTOR (S. BOULARDII) 250 MG CAP PO SCH (08:26)
[2020-05-19] MEDS: FAMOTIDINE 20 MG TAB PO SCH (08:26)
[2020-05-19] MEDS: TICAGRELOR 90 MG TAB PO SCH ×2 (08:27→22:03)
[2020-05-19 08:44] LABS: Band Neutrophils % (manual) 1; Lymphocytes % (manual) 3 (10.0-50.0); Monocytes % (manual) 6 (0-12); Myelocytes % 2
[2020-05-19] MEDS ORDERED: POTASSIUM CHL 20 Meq TABLET PO ONE (08:45)
[2020-05-19 09:00] VITALS: BP 131/75
[2020-05-19] MEDS: POTASSIUM CHL 20MEQ/100ML 100 ML IV SCH ×2 (09:32→12:24)
[2020-05-19] MEDS: METOPROLOL TARTRATE 25 MG TAB PO SCH ×2 (09:34→10:53)
[2020-05-19] MEDS ORDERED: VANCOMYCIN PER PHARMACY 0 MG IV SCH (12:30)
[2020-05-19 12:53] VITALS: BP 137/69
[2020-05-19] MEDS: MICAFUNGIN SODIUM 100 MG in SODIUM CHL 0.9% 100 ML IV SCH (15:14)
[2020-05-19 17:00] VITALS: BP 144/75
[2020-05-19] MEDS: TAMSULOSIN HYDROCHLORIDE 0.4 MG CAP PO SCH (18:45)
[2020-05-19] MEDS: VANCOMYCIN 1GM/250ML 250 ML IV SCH (18:45)
[2020-05-19] MEDS: RIVAROXABAN 20 MG TAB PO SCH (18:46)
[2020-05-19 22:00] VITALS: BP 135/68
[2020-05-19] MEDS: PRAVASTATIN SODIUM 20 MG TAB PO SCH (22:03)
[2020-05-20] VITALS (7 sets, daily range): BP systolic 118–147; BP diastolic 61–74
[2020-05-20] MEDS: IPRATROPIUM BROM 0.5 MG/2.5ML INH SOL NEB SCH ×3 (06:11→17:48)
[2020-05-20] MEDS: ALBUTEROL SULF 2.5 MG/0.5ML(0.5%) NEB SOLN NEB SCH ×3 (06:11→17:48)
[2020-05-20] MEDS: MEROPENEM 1GM IVPB 100 ML IV SCH ×3 (06:20→22:38)
[2020-05-20 06:53] LABS: Basophils # (auto) 0 10 ^3/uL (0-0.2); Basophils % (auto) 0.1 % (0.0-2.0); Eosinophils # (auto) 0.1 10 ^3/uL (0-0.8); Eosinophils % (auto) 1.2 % (0.0-7.0); Hematocrit 30.6 % (41.0-53.0); Hemoglobin 10.2 g/dL (13.5-17.5); Lymphocytes # (auto) 0.6 10 ^3/uL (0.4-5.4); Lymphocytes % (auto) 5.5 % (10.0-50.0); Mean Corpuscular Hemoglobin 30.3 pg (28.0-32.0); Mean Corpuscular Hgb Conc. 33.4 g/dL (32.0-36.0); Mean Corpuscular Volume 90.7 fL (80.0-100.0); Monocytes # (auto) 0.8 10 ^3/uL (0-1.3); Neutrophils # (auto) 9.6 10 ^3/uL (1.6-8.6); Neutrophils % (auto) 86.2 % (37.0-80.0); Platelet Count (auto) 252 10^3/uL (140-450); Red Blood Cells 3.37 10^6/uL (4.5-5.90); Red Cell Distribution Width 17.7 % (11.8-14.3); White Blood Cell 11.1 10^3/uL (4.4-10.8)
[2020-05-20 07:18] LABS: Calcium 8.6 mg/dL (8.5-10.1); Potassium 3.2 mmol/L (3.5-5.1)
[2020-05-20 07:22] LABS: BUN/Creatinine Ratio 19.4
[2020-05-20] MEDS: Ensure Enlive Chocolate 8oz Bottle PO SCH ×3 (08:18→17:32)
[2020-05-20] MEDS: FLORASTOR (S. BOULARDII) 250 MG CAP PO SCH (09:47)
[2020-05-20] MEDS: VANCOMYCIN 1GM/250ML 250 ML IV SCH (09:47)
[2020-05-20] MEDS: TICAGRELOR 90 MG TAB PO SCH ×2 (09:47→22:39)
[2020-05-20] MEDS: PANTOPRAZOLE 40 MG TAB PO SCH (09:48)
[2020-05-20] MEDS: FAMOTIDINE 20 MG TAB PO SCH ×2 (09:48→22:38)
[2020-05-20] MEDS: METOPROLOL TARTRATE 25 MG TAB PO SCH ×2 (09:48→22:40)
[2020-05-20] MEDS: BUDESONIDE (INHALATION) 0.5 MG/2 ML NEB NEB SCH ×2 (10:00→17:48)
[2020-05-20] MEDS: MICAFUNGIN SODIUM 100 MG in SODIUM CHL 0.9% 100 ML IV SCH (17:31)
[2020-05-20] MEDS: RIVAROXABAN 20 MG TAB PO SCH (17:32)
[2020-05-20] MEDS: TAMSULOSIN HYDROCHLORIDE 0.4 MG CAP PO SCH (17:32)
[2020-05-20] MEDS ORDERED: POTASSIUM EFFERVESENT TAB 25 MEQ PO ONE (18:15)
[2020-05-20] MEDS: PRAVASTATIN SODIUM 20 MG TAB PO SCH (22:39)
[2020-05-21 05:00] VITALS: BP 144/67
[2020-05-21] MEDS: VANCOMYCIN 1GM/250ML 250 ML IV SCH ×2 (05:11→21:36)
[2020-05-21 05:55] LABS: Hematocrit 29.5 % (41.0-53.0); Mean Corpuscular Hemoglobin 31.1 pg (28.0-32.0); Mean Corpuscular Volume 91.2 fL (80.0-100.0); Platelet Count (auto) 251 10^3/uL (140-450); Red Blood Cells 3.23 10^6/uL (4.5-5.90); Red Cell Distribution Width 17.7 % (11.8-14.3); White Blood Cell 10.3 10^3/uL (4.4-10.8)
[2020-05-21] MEDS: MEROPENEM 1GM IVPB 100 ML IV SCH ×3 (06:07→21:26)
[2020-05-21 06:22] LABS: Potassium 3.5 mmol/L (3.5-5.1)
[2020-05-21 06:28] LABS: BUN/Creatinine Ratio 17.6
[2020-05-21 06:29] LABS: Calcium 8.5 mg/dL (8.5-10.1)
[2020-05-21] MEDS ORDERED: BUDESONIDE (INHALATION) 0.5 MG/2 ML NEB ONE (06:29)
[2020-05-21] MEDS ORDERED: ALBUTEROL SULF 2.5 MG/0.5ML(0.5%) NEB SOLN ONE (06:29)
[2020-05-21] MEDS ORDERED: IPRATROPIUM BROM 0.5 MG/2.5ML INH SOL ONE (06:29)
[2020-05-21 07:32] LABS: Basophils % (manual) 0 (0.0-2.0); Blast Cells 0; Promyelocytes % 0; Reactive Lymphocytes 0
[2020-05-21] MEDS: IPRATROPIUM BROM 0.5 MG/2.5ML INH SOL NEB SCH ×3 (07:42→18:43)
[2020-05-21] MEDS: BUDESONIDE (INHALATION) 0.5 MG/2 ML NEB NEB SCH ×2 (07:42→18:43)
[2020-05-21] MEDS: ALBUTEROL SULF 2.5 MG/0.5ML(0.5%) NEB SOLN NEB SCH ×3 (07:42→18:43)
[2020-05-21] MEDS: Ensure Enlive Chocolate 8oz Bottle PO SCH ×3 (08:13→17:24)
[2020-05-21 09:00] VITALS: BP 111/60
[2020-05-21] MEDS: METOPROLOL TARTRATE 25 MG TAB PO SCH ×2 (09:54→21:36)
[2020-05-21] MEDS: FLORASTOR (S. BOULARDII) 250 MG CAP PO SCH (09:54)
[2020-05-21] MEDS: TICAGRELOR 90 MG TAB PO SCH ×2 (09:54→21:26)
[2020-05-21] MEDS: PANTOPRAZOLE 40 MG TAB PO SCH (09:55)
[2020-05-21 11:18] LABS: Band Neutrophils % (manual) 4; Eosinophils % (manual) 2 (0-7); Lymphocytes % (manual) 6 (10.0-50.0); Metamyelocytes % 3; Monocytes % (manual) 2 (0-12); Myelocytes % 1
[2020-05-21] MEDS: MICAFUNGIN SODIUM 100 MG in SODIUM CHL 0.9% 100 ML IV SCH ×2 (12:32→15:48)
[2020-05-21 12:59] VITALS: BP 119/68
[2020-05-21 16:54] VITALS: BP 143/72
[2020-05-21] MEDS: TAMSULOSIN HYDROCHLORIDE 0.4 MG CAP PO SCH (17:25)
[2020-05-21] MEDS: RIVAROXABAN 20 MG TAB PO SCH (17:25)
[2020-05-21] MEDS: PRAVASTATIN SODIUM 20 MG TAB PO SCH (21:26)
[2020-05-21 22:00] VITALS: BP 118/64
[2020-05-22 05:00] VITALS: BP 137/65
[2020-05-22] MEDS: MEROPENEM 1GM IVPB 100 ML IV SCH ×3 (05:15→20:46)
[2020-05-22] MEDS: IPRATROPIUM BROM 0.5 MG/2.5ML INH SOL NEB SCH ×3 (06:08→18:46)
[2020-05-22] MEDS: BUDESONIDE (INHALATION) 0.5 MG/2 ML NEB NEB SCH ×2 (06:08→18:46)
[2020-05-22] MEDS: ALBUTEROL SULF 2.5 MG/0.5ML(0.5%) NEB SOLN NEB SCH ×3 (06:08→18:45)
[2020-05-22 09:00] VITALS: BP 114/66
[2020-05-22] MEDS: Ensure Enlive Chocolate 8oz Bottle PO SCH ×3 (09:42→17:41)
[2020-05-22] MEDS: TICAGRELOR 90 MG TAB PO SCH ×2 (09:42→20:46)
[2020-05-22] MEDS: PANTOPRAZOLE 40 MG TAB PO SCH (09:43)
[2020-05-22] MEDS: METOPROLOL TARTRATE 25 MG TAB PO SCH ×2 (09:43→21:11)
[2020-05-22] MEDS: FLORASTOR (S. BOULARDII) 250 MG CAP PO SCH (09:43)
[2020-05-22] MEDS: FAMOTIDINE 20 MG TAB PO SCH (09:43)
[2020-05-22] MEDS: MICAFUNGIN SODIUM 100 MG in SODIUM CHL 0.9% 100 ML IV SCH (11:53)
[2020-05-22 12:59] VITALS: BP 136/69
[2020-05-22] MEDS: VANCOMYCIN 1GM/250ML 250 ML IV SCH (16:38)
[2020-05-22 17:00] VITALS: BP 124/61
[2020-05-22] MEDS: RIVAROXABAN 20 MG TAB PO SCH (17:41)
[2020-05-22] MEDS: TAMSULOSIN HYDROCHLORIDE 0.4 MG CAP PO SCH (17:41)
[2020-05-22] MEDS: PRAVASTATIN SODIUM 20 MG TAB PO SCH (20:46)
[2020-05-22 22:00] VITALS: BP 117/63
[2020-05-23 05:00] VITALS: BP 131/70
[2020-05-23] MEDS: MEROPENEM 1GM IVPB 100 ML IV SCH ×3 (05:18→22:29)
[2020-05-23] MEDS: ALBUTEROL SULF 2.5 MG/0.5ML(0.5%) NEB SOLN NEB SCH ×3 (06:25→19:03)
[2020-05-23] MEDS: IPRATROPIUM BROM 0.5 MG/2.5ML INH SOL NEB SCH ×3 (06:25→19:03)
[2020-05-23] MEDS: BUDESONIDE (INHALATION) 0.5 MG/2 ML NEB NEB SCH ×2 (06:26→19:03)
[2020-05-23 06:49] LABS: Hematocrit 29.1 % (41.0-53.0); Hemoglobin 9.9 g/dL (13.5-17.5); Mean Corpuscular Hemoglobin 30.5 pg (28.0-32.0); Mean Corpuscular Volume 89.8 fL (80.0-100.0); Platelet Count (auto) 280 10^3/uL (140-450); Red Blood Cells 3.23 10^6/uL (4.5-5.90); Red Cell Distribution Width 17.7 % (11.8-14.3)
[2020-05-23 06:51] LABS: Band Neutrophils % (manual) 0; Basophils % (manual) 0 (0.0-2.0); Blast Cells 0; Eosinophils % (manual) 0 (0-7); Promyelocytes % 0; Reactive Lymphocytes 0
[2020-05-23 06:56] LABS: BUN/Creatinine Ratio 13.2; Calcium 8.9 mg/dL (8.5-10.1); Potassium 3.4 mmol/L (3.5-5.1)
[2020-05-23 07:31] LABS: Lymphocytes % (manual) 4 (10.0-50.0); Metamyelocytes % 2; Monocytes % (manual) 5 (0-12); Myelocytes % 1
[2020-05-23] MEDS: Ensure Enlive Chocolate 8oz Bottle PO SCH ×3 (08:00→17:01)
[2020-05-23 08:39] VITALS: BP 122/66
[2020-05-23] MEDS: VANCOMYCIN 1GM/250ML 250 ML IV SCH (09:30)
[2020-05-23] MEDS: PANTOPRAZOLE 40 MG TAB PO SCH (09:31)
[2020-05-23] MEDS: TICAGRELOR 90 MG TAB PO SCH ×2 (09:31→22:30)
[2020-05-23] MEDS: FAMOTIDINE 20 MG TAB PO SCH (09:31)
[2020-05-23] MEDS: FLORASTOR (S. BOULARDII) 250 MG CAP PO SCH (09:31)
[2020-05-23] MEDS: METOPROLOL TARTRATE 25 MG TAB PO SCH ×2 (09:32→22:31)
[2020-05-23 10:40] VITALS: BP 125/69
[2020-05-23] MEDS: MICAFUNGIN SODIUM 100 MG in SODIUM CHL 0.9% 100 ML IV SCH (11:57)
[2020-05-23 12:47] VITALS: BP 135/74
[2020-05-23] MEDS: LINEZOLID 600MG TABLET PO SCH ×2 (15:24→22:30)
[2020-05-23 16:28] VITALS: BP 135/73
[2020-05-23] MEDS: TAMSULOSIN HYDROCHLORIDE 0.4 MG CAP PO SCH (17:01)
[2020-05-23] MEDS: RIVAROXABAN 20 MG TAB PO SCH (17:01)
[2020-05-23 22:00] VITALS: BP 119/59
[2020-05-23] MEDS: PRAVASTATIN SODIUM 20 MG TAB PO SCH (22:29)
[2020-05-24 05:00] VITALS: BP 141/70
[2020-05-24] MEDS: MEROPENEM 1GM IVPB 100 ML IV SCH ×2 (06:12→14:03)
[2020-05-24 07:15] LABS: Basophils # (auto) 0 10 ^3/uL (0-0.2); Basophils % (auto) 0.3 % (0.0-2.0); Eosinophils # (auto) 0.1 10 ^3/uL (0-0.8); Eosinophils % (auto) 0.5 % (0.0-7.0); Hematocrit 29.3 % (41.0-53.0); Hemoglobin 9.8 g/dL (13.5-17.5); Lymphocytes # (auto) 0.8 10 ^3/uL (0.4-5.4); Mean Corpuscular Hemoglobin 29.9 pg (28.0-32.0); Mean Corpuscular Hgb Conc. 33.4 g/dL (32.0-36.0); Mean Corpuscular Volume 89.6 fL (80.0-100.0); Monocytes # (auto) 0.7 10 ^3/uL (0-1.3); Monocytes % (auto) 7.1 % (0.0-12.0); Neutrophils # (auto) 8.1 10 ^3/uL (1.6-8.6); Neutrophils % (auto) 84.1 % (37.0-80.0); Nucleated Red Blood Cells % 0.1 %; Platelet Count (auto) 271 10^3/uL (140-450); Red Blood Cells 3.27 10^6/uL (4.5-5.90); Red Cell Distribution Width 17.7 % (11.8-14.3); White Blood Cell 9.7 10^3/uL (4.4-10.8)
[2020-05-24] MEDS: ALBUTEROL SULF 2.5 MG/0.5ML(0.5%) NEB SOLN NEB SCH ×2 (07:30→12:10)
[2020-05-24] MEDS: BUDESONIDE (INHALATION) 0.5 MG/2 ML NEB NEB SCH (07:31)
[2020-05-24] MEDS: IPRATROPIUM BROM 0.5 MG/2.5ML INH SOL NEB SCH ×2 (07:31→12:10)
[2020-05-24 07:43] LABS: BUN/Creatinine Ratio 10.5; Calcium 8.7 mg/dL (8.5-10.1); Potassium 3.3 mmol/L (3.5-5.1)
[2020-05-24] MEDS: Ensure Enlive Chocolate 8oz Bottle PO SCH ×2 (08:04→12:03)
[2020-05-24 08:15] VITALS: BP 128/69
[2020-05-24 09:00] VITALS: BP 128/69
[2020-05-24] MEDS: FLORASTOR (S. BOULARDII) 250 MG CAP PO SCH (09:35)
[2020-05-24] MEDS: METOPROLOL TARTRATE 25 MG TAB PO SCH (09:35)
[2020-05-24] MEDS: FAMOTIDINE 20 MG TAB PO SCH (09:35)
[2020-05-24] MEDS: TICAGRELOR 90 MG TAB PO SCH (09:35)
[2020-05-24] MEDS: LINEZOLID 600MG TABLET PO SCH (09:36)
[2020-05-24] MEDS: PANTOPRAZOLE 40 MG TAB PO SCH (09:36)
[2020-05-24] MEDS: MICAFUNGIN SODIUM 100 MG in SODIUM CHL 0.9% 100 ML IV SCH (12:35)
[2020-05-24 13:00] VITALS: BP 139/70
[2020-05-24] MEDS ORDERED: LINE1TAB6 PO (13:08)
[2020-05-24] MEDS ORDERED: POTASSIUM EFFERVESENT TAB 25 MEQ PO ONE (14:15)
[2020-05-24 14:29] VITALS: BP 139/70
[2020-05-24 17:00] VITALS: BP 146/71
== END 2020-05-24 16:55 | disposition home health service (06) | DRG 177 ==
LOC: EDBD 11:00 → ER 11:00 → TELE-EAST 18:05
PROVIDERS: ADMIT Nurse Practitioner Acute Care; ATTEND Internal Medicine Pulmonary Disease
PROC: 0JPV0WZ Removal of Totally Implantable Vascular Access Device from Upper Extremity Subcutaneous Tissue and Fascia, Open Approach (ICD-10-PCS; principal; 2020-05-17 14:24)
PROC: 05HA33Z Insertion of Infusion Device into Left Brachial Vein, Percutaneous Approach (ICD-10-PCS; 2020-05-24)
PROC: B54NZZA Ultrasonography of Left Upper Extremity Veins, Guidance (ICD-10-PCS; 2020-05-24)
DX: J85.1 Abscess of lung with pneumonia (principal); J96.21 Acute and chronic respiratory failure with hypoxia; I21.A1 Myocardial infarction type 2; E43 Unspecified severe protein-calorie malnutrition; J44.1 Chronic obstructive pulmonary disease with (acute) exacerbation; C25.9 Malignant neoplasm of pancreas, unspecified; C78.7 Secondary malignant neoplasm of liver and intrahepatic bile duct; B49 Unspecified mycosis; J44.0 Chronic obstructive pulmonary disease with (acute) lower respiratory infection; Z20.822 Contact with and (suspected) exposure to COVID-19; I25.10 Atherosclerotic heart disease of native coronary artery without angina pectoris; D63.8 Anemia in other chronic diseases classified elsewhere; E87.6 Hypokalemia; K21.9 Gastro-esophageal reflux disease without esophagitis; N40.0 Benign prostatic hyperplasia without lower urinary tract symptoms; F17.210 Nicotine dependence, cigarettes, uncomplicated; B95.2 Enterococcus as the cause of diseases classified elsewhere; B96.20 Unspecified Escherichia coli [E. coli] as the cause of diseases classified elsewhere; Z86.16 Personal history of COVID-19; I25.2 Old myocardial infarction; Z87.01 Personal history of pneumonia (recurrent); Z68.21 Body mass index [BMI] 21.0-21.9, adult; Z28.29 Immunization not carried out because of patient decision for other reason; Z79.899 Other long term (current) drug therapy; Z92.21 Personal history of antineoplastic chemotherapy
CPT/HCPCS: 36415; 36600; 71045; 71275; 80048; 80053; 80202; 81001; 82565; 82805; 83605; 83735; 84443; 84484; 85007; 85025; 85027; 85610; 85730; 86635; 87040; 87070; 87075; 87077; 87081; 87186; 87205; 87426; 93005; 93306; 94640; 96365; 97530; G0378; J0696; J1100; J2185; J2248; J2250; J2704; J3480; J3490

== ENCOUNTER 2020-06-08 20:28 | Inpatient (IN) | payer OTHER ==
[~2020-06-08] VITALS: Ht 177.8 cm; Wt 67.4 kg
[~2020-06-08 20:28] MED LIST changes: +LINE1TAB6 PO
[2020-06-08 21:41] LABS: Basophils # (auto) 0 10 ^3/uL (0-0.2); Eosinophils # (auto) 0.3 10 ^3/uL (0-0.8); Hematocrit 23.8 % (41.0-53.0); Lymphocytes # (auto) 0.8 10 ^3/uL (0.4-5.4); Mean Corpuscular Volume 89.2 fL (80.0-100.0); Monocytes # (auto) 0.4 10 ^3/uL (0-1.3); Neutrophils # (auto) 3.3 10 ^3/uL (1.6-8.6); Platelet Count (auto) 88 10^3/uL (140-450); Red Blood Cells 2.67 10^6/uL (4.5-5.90); White Blood Cell 4.9 10^3/uL (4.4-10.8)
[2020-06-08 21:46] LABS: Basophils % (auto) 0.4 % (0.0-2.0); Eosinophils % (auto) 6.1 % (0.0-7.0); Hemoglobin 8.1 g/dL (13.5-17.5); Mean Corpuscular Hemoglobin 30.3 pg (28.0-32.0); Neutrophils % (auto) 67.5 % (37.0-80.0); Red Cell Distribution Width 17.9 % (11.8-14.3)
[2020-06-08 22:02] LABS: INR 1.08 (0.9-1.15); Partial Thromboplastin Time 34.5 sec (23.0-31.2)
[2020-06-08 22:04] LABS: Albumin 2.2 g/dL (3.4-5.0); BUN/Creatinine Ratio 16.4; Calcium 8.1 mg/dL (8.5-10.1); Potassium 4.3 mmol/L (3.5-5.1)
[2020-06-08 22:09] LABS: Bilirubin, Total 0.2 mg/dL (0.2-1.0); Total Protein 6.2 g/dL (6.4-8.2)
[2020-06-08] MEDS ORDERED: VANCOMYCIN 1GM/250ML 250 ML IV ONE (22:45)
[2020-06-08] MEDS ORDERED: VANCOMYCIN PER PHARMACY 0 MG IV SCH (22:45)
[2020-06-08] MEDS ORDERED: PIPERACILLIN-TAZOB 3.375GM 100 ML IV ONE (22:45)
[2020-06-08] MEDS ORDERED: SODIUM CHLORIDE 0.9% 2,000 ML IV ONE (23:30)
[2020-06-08] MEDS ORDERED: IOHEXOL 350 MG/ML 100ML IJ ONE (23:59)
[2020-06-09] MEDS ORDERED: ALBUMIN 5% 250 ML IV ONE (00:45)
[2020-06-09] MEDS ORDERED: ACETAMINOPHEN 325 MG TAB PO PRN (00:45)
[2020-06-09] MEDS ORDERED: MORPHINE SULF INJ 2 MG/ML SYRINGE 1ML IV PRN (00:45)
[2020-06-09] MEDS ORDERED: ONDANSETRON HCL 4 MG/2 ML VIAL IV PRN (00:45)
[2020-06-09] MEDS ORDERED: NITROGLYCERIN 0.4 MG SL TAB SL PRN (00:45)
[2020-06-09 02:59] VITALS: BP 115/56
[2020-06-09] MEDS: AZITHROMYCIN 500MG/ 250ML 250 ML IV SCH ×2 (03:57→10:05)
[2020-06-09] MEDS: cefTRIAXone 1GM/50ML D5W 50 ML IV SCH (04:40)
[2020-06-09 05:00] VITALS: BP 103/65
[2020-06-09 08:45] VITALS: BP 123/76
[2020-06-09] MEDS ORDERED: ASPirin 81 mg TAB PO SCH (10:00)
[2020-06-09] MEDS: FAMOTIDINE 20 MG TAB PO SCH ×2 (10:05→21:45)
[2020-06-09] MEDS: TICAGRELOR 90 MG TAB PO SCH ×2 (10:30→21:44)
[2020-06-09 13:02] VITALS: BP 105/49
[2020-06-09] MEDS ORDERED: SODIUM CHLORIDE 0.9% 1,000 ML IV ONE (14:00)
[2020-06-09 16:54] VITALS: BP 84/51
[2020-06-09] MEDS ORDERED: VANCOMYCIN 1GM/250ML 250 ML IV SCH (17:00)
[2020-06-09] MEDS: RIVAROXABAN 20 MG TAB PO SCH (17:40)
[2020-06-09] MEDS: ATORVASTATIN 20 MG TAB PO SCH (21:45)
[2020-06-09 22:00] VITALS: BP 97/56
[2020-06-10 05:00] VITALS: BP 105/63
[2020-06-10 07:33] LABS: Basophils # (auto) 0 10 ^3/uL (0-0.2); Basophils % (auto) 0.5 % (0.0-2.0); Eosinophils # (auto) 0.3 10 ^3/uL (0-0.8); Eosinophils % (auto) 5.9 % (0.0-7.0); Hematocrit 20.6 % (41.0-53.0); Hemoglobin 7.1 g/dL (13.5-17.5); Lymphocytes # (auto) 0.6 10 ^3/uL (0.4-5.4); Lymphocytes % (auto) 14.6 % (10.0-50.0); Mean Corpuscular Hemoglobin 29.9 pg (28.0-32.0); Mean Corpuscular Hgb Conc. 34.6 g/dL (32.0-36.0); Mean Corpuscular Volume 86.5 fL (80.0-100.0); Monocytes # (auto) 0.5 10 ^3/uL (0-1.3); Monocytes % (auto) 10.4 % (0.0-12.0); Neutrophils % (auto) 68.6 % (37.0-80.0); Nucleated Red Blood Cells % 0.1 %; Platelet Count (auto) 72 10^3/uL (140-450); Red Blood Cells 2.38 10^6/uL (4.5-5.90); Red Cell Distribution Width 17.4 % (11.8-14.3); White Blood Cell 4.4 10^3/uL (4.4-10.8)
[2020-06-10 07:54] LABS: BUN/Creatinine Ratio 11.7; Bilirubin, Total 0.4 mg/dL (0.2-1.0); Calcium 8.4 mg/dL (8.5-10.1); Total Protein 5.5 g/dL (6.4-8.2)
[2020-06-10 08:38] VITALS: BP 107/67
[2020-06-10] MEDS: cefTRIAXone 1GM/50ML D5W 50 ML IV SCH (09:41)
[2020-06-10] MEDS: FAMOTIDINE 20 MG TAB PO SCH ×2 (09:41→22:19)
[2020-06-10] MEDS: AZITHROMYCIN 500MG/ 250ML 250 ML IV SCH (09:41)
[2020-06-10] MEDS: TICAGRELOR 90 MG TAB PO SCH ×2 (09:41→22:18)
[2020-06-10] MEDS ORDERED: GADOTERATE MEG 10 MMOL/20ml INJ (0.5MMOL/ml) IV ONE (11:58)
[2020-06-10 12:55] VITALS: BP 104/60
[2020-06-10 16:50] VITALS: BP 130/64
[2020-06-10] MEDS: Ensure HIGH Protein Chocolate 8oz Bottle PO SCH (18:46)
[2020-06-10] MEDS: RIVAROXABAN 20 MG TAB PO SCH (18:46)
[2020-06-10 18:57] LABS: Hematocrit 24.4 % (41.0-53.0); Hemoglobin 7.8 g/dL (13.5-17.5)
[2020-06-10 22:00] VITALS: BP 127/68
[2020-06-10] MEDS: ATORVASTATIN 20 MG TAB PO SCH (22:18)
[2020-06-11 05:00] VITALS: BP 132/66
[2020-06-11 06:34] LABS: Basophils # (auto) 0 10 ^3/uL (0-0.2); Eosinophils # (auto) 0.2 10 ^3/uL (0-0.8); Hemoglobin 7.8 g/dL (13.5-17.5); Lymphocytes # (auto) 0.6 10 ^3/uL (0.4-5.4); Neutrophils # (auto) 3.5 10 ^3/uL (1.6-8.6); White Blood Cell 4.8 10^3/uL (4.4-10.8)
[2020-06-11 06:38] LABS: Basophils % (auto) 0.3 % (0.0-2.0); Eosinophils % (auto) 3.8 % (0.0-7.0); Hematocrit 22.4 % (41.0-53.0); Mean Corpuscular Hemoglobin 29.9 pg (28.0-32.0); Mean Corpuscular Hgb Conc. 34.7 g/dL (32.0-36.0); Mean Corpuscular Volume 86.3 fL (80.0-100.0); Monocytes # (auto) 0.6 10 ^3/uL (0-1.3); Monocytes % (auto) 11.5 % (0.0-12.0); Neutrophils % (auto) 72.4 % (37.0-80.0); Nucleated Red Blood Cells % 0.1 %; Platelet Count (auto) 100 10^3/uL (140-450); Red Cell Distribution Width 17.3 % (11.8-14.3)
[2020-06-11 06:46] LABS: Potassium 3.9 mmol/L (3.5-5.1)
[2020-06-11 06:53] LABS: Albumin 2.1 g/dL (3.4-5.0); BUN/Creatinine Ratio 8.5; Bilirubin, Total 0.4 mg/dL (0.2-1.0); Calcium 8.3 mg/dL (8.5-10.1); Total Protein 5.8 g/dL (6.4-8.2)
[2020-06-11] MEDS: cefTRIAXone 1GM/50ML D5W 50 ML IV SCH (08:18)
[2020-06-11] MEDS: Ensure HIGH Protein Chocolate 8oz Bottle PO SCH ×3 (08:19→18:01)
[2020-06-11 09:00] VITALS: BP 119/66
[2020-06-11] MEDS: AZITHROMYCIN 500MG/ 250ML 250 ML IV SCH (10:37)
[2020-06-11] MEDS: TICAGRELOR 90 MG TAB PO SCH ×2 (10:38→22:04)
[2020-06-11] MEDS: FAMOTIDINE 20 MG TAB PO SCH ×2 (10:38→22:04)
[2020-06-11 13:00] VITALS: BP 122/64
[2020-06-11 17:00] VITALS: BP 128/70
[2020-06-11] MEDS: RIVAROXABAN 20 MG TAB PO SCH (18:01)
[2020-06-11 22:00] VITALS: BP 126/66
[2020-06-11] MEDS: ATORVASTATIN 20 MG TAB PO SCH (22:04)
[2020-06-12 05:00] VITALS: BP 146/82
[2020-06-12 08:00] VITALS: BP 133/71
[2020-06-12] MEDS: Ensure HIGH Protein Chocolate 8oz Bottle PO SCH ×2 (08:00→12:19)
[2020-06-12 08:16] LABS: Basophils # (auto) 0 10 ^3/uL (0-0.2); Basophils % (auto) 0.4 % (0.0-2.0); Eosinophils # (auto) 0.2 10 ^3/uL (0-0.8); Eosinophils % (auto) 3.5 % (0.0-7.0); Hematocrit 22.2 % (41.0-53.0); Hemoglobin 7.7 g/dL (13.5-17.5); Lymphocytes # (auto) 0.7 10 ^3/uL (0.4-5.4); Lymphocytes % (auto) 12.5 % (10.0-50.0); Mean Corpuscular Hgb Conc. 34.7 g/dL (32.0-36.0); Mean Corpuscular Volume 86.4 fL (80.0-100.0); Monocytes # (auto) 0.6 10 ^3/uL (0-1.3); Neutrophils # (auto) 3.9 10 ^3/uL (1.6-8.6); Neutrophils % (auto) 72.6 % (37.0-80.0); Platelet Count (auto) 108 10^3/uL (140-450); Red Blood Cells 2.57 10^6/uL (4.5-5.90); Red Cell Distribution Width 17.6 % (11.8-14.3); White Blood Cell 5.4 10^3/uL (4.4-10.8)
[2020-06-12 08:57] LABS: Potassium 3.8 mmol/L (3.5-5.1)
[2020-06-12 09:00] VITALS: BP 133/71
[2020-06-12 09:07] LABS: BUN/Creatinine Ratio 6.4; Calcium 8.8 mg/dL (8.5-10.1)
[2020-06-12] MEDS: FAMOTIDINE 20 MG TAB PO SCH (09:13)
[2020-06-12] MEDS: TICAGRELOR 90 MG TAB PO SCH (09:13)
[2020-06-12] MEDS: cefTRIAXone 1GM/50ML D5W 50 ML IV SCH (09:13)
[2020-06-12] MEDS: AZITHROMYCIN 500MG/ 250ML 250 ML IV SCH (10:12)
[2020-06-12] MEDS ORDERED: SODIUM FERR GLUC 62.5MG/5ML 125 MG in SODIUM CHL 0.9% 100 ML IV ONE (12:45)
[2020-06-12 13:00] VITALS: BP 123/75
[2020-06-12 13:01] LABS: Ferritin 650.7 ng/mL (10-322); Folate (Folic Acid) 18.16 ng/mL (5.38-24)
[2020-06-12] MEDS ORDERED: FER325T PO (14:07)
[2020-06-12 17:00] VITALS: BP 121/68
== END 2020-06-12 18:00 | disposition home or self-care (01) | DRG 640 ==
LOC: ER 20:28 → EDBD 20:28 → TELE 06-09 00:34 → TELE-EAST 06-09 02:32
PROVIDERS: ADMIT Nurse Practitioner; ATTEND Internal Medicine
DX: E86.0 Dehydration (principal); N17.0 Acute kidney failure with tubular necrosis; J96.10 Chronic respiratory failure, unspecified whether with hypoxia or hypercapnia; C78.7 Secondary malignant neoplasm of liver and intrahepatic bile duct; C25.9 Malignant neoplasm of pancreas, unspecified; E44.0 Moderate protein-calorie malnutrition; N12 Tubulo-interstitial nephritis, not specified as acute or chronic; I95.9 Hypotension, unspecified; R55 Syncope and collapse; D63.8 Anemia in other chronic diseases classified elsewhere; D69.6 Thrombocytopenia, unspecified; E86.1 Hypovolemia; D50.9 Iron deficiency anemia, unspecified; I25.10 Atherosclerotic heart disease of native coronary artery without angina pectoris; Z68.21 Body mass index [BMI] 21.0-21.9, adult; Z87.891 Personal history of nicotine dependence; J43.9 Emphysema, unspecified; Z20.822 Contact with and (suspected) exposure to COVID-19; Z79.01 Long term (current) use of anticoagulants; Z79.02 Long term (current) use of antithrombotics/antiplatelets; Z85.05 Personal history of malignant neoplasm of liver; Z85.07 Personal history of malignant neoplasm of pancreas; Z86.16 Personal history of COVID-19; N40.0 Benign prostatic hyperplasia without lower urinary tract symptoms; Z95.5 Presence of coronary angioplasty implant and graft; Z92.21 Personal history of antineoplastic chemotherapy
CPT/HCPCS: 36415; 70450; 70553; 71250; 71275; 72125; 74176; 80048; 80053; 80202; 82140; 82565; 82607; 82728; 82746; 83540; 83550; 83605; 83735; 83880; 84443; 84484; 85014; 85018; 85025; 85379; 85610; 85730; 86850; 86900; 86901; 87040; 87081; 87426; 93886; 96365; 96366; 96368; G0378; J0696; J2543

== ENCOUNTER 2020-07-07 09:35 | Emergency (ER) | payer OTHER ==
[~2020-07-07] VITALS: Ht 177.8 cm; Wt 65.3 kg
[~2020-07-07 09:35] MED LIST changes: +FER325T PO; -LINE1TAB6 PO; -LISI-285 PO; -METO25TA5 PO; -PRED20TA2 PO; -SACC250C PO
[2020-07-07 10:28] LABS: Basophils # (auto) 0 10 ^3/uL (0-0.2); Basophils % (auto) 0.1 % (0.0-2.0); Eosinophils # (auto) 0 10 ^3/uL (0-0.8); Eosinophils % (auto) 0.4 % (0.0-7.0); Hematocrit 21.1 % (41.0-53.0); Hemoglobin 7.1 g/dL (13.5-17.5); Lymphocytes # (auto) 0.4 10 ^3/uL (0.4-5.4); Lymphocytes % (auto) 8.4 % (10.0-50.0); Mean Corpuscular Hgb Conc. 33.5 g/dL (32.0-36.0); Mean Corpuscular Volume 95.8 fL (80.0-100.0); Monocytes # (auto) 0.2 10 ^3/uL (0-1.3); Monocytes % (auto) 3.9 % (0.0-12.0); Neutrophils % (auto) 87.2 % (37.0-80.0); Nucleated Red Blood Cells % 0.1 %; Red Blood Cells 2.21 10^6/uL (4.5-5.90); Red Cell Distribution Width 22.5 % (11.8-14.3); White Blood Cell 4.6 10^3/uL (4.4-10.8)
[2020-07-07 10:35] LABS: Albumin 2.3 g/dL (3.4-5.0); Calcium 8.6 mg/dL (8.5-10.1); Potassium 4.1 mmol/L (3.5-5.1)
[2020-07-07 10:39] LABS: BUN/Creatinine Ratio 13.6; Bilirubin, Total 0.5 mg/dL (0.2-1.0); Total Protein 6.5 g/dL (6.4-8.2)
[2020-07-07 12:35] VITALS: BP 127/45
[2020-07-07 12:50] VITALS: BP 112/67
[2020-07-07 15:05] VITALS: BP 140/77
[2020-07-07 16:08] VITALS: BP 146/70
== END 2020-07-07 16:55 | disposition home or self-care (01) ==
LOC: ER 09:35
DX: D64.9 Anemia, unspecified (principal); E46 Unspecified protein-calorie malnutrition; J44.9 Chronic obstructive pulmonary disease, unspecified; K21.9 Gastro-esophageal reflux disease without esophagitis; I10 Essential (primary) hypertension; I25.10 Atherosclerotic heart disease of native coronary artery without angina pectoris; Z68.20 Body mass index [BMI] 20.0-20.9, adult; Z79.899 Other long term (current) drug therapy
CPT/HCPCS: 36415; 36430; 71045; 80053; 85025; 86850; 86900; 86901; 86920; 93005; 99285; P9016

== ENCOUNTER 2020-07-31 14:48 | Inpatient (IN) | payer OTHER ==
[~2020-07-31] VITALS: Ht 177.8 cm; Wt 75.1 kg
[2020-07-31 18:23] LABS: Basophils # (auto) 0.1 10 ^3/uL (0-0.2); Basophils % (auto) 1.4 % (0.0-2.0); Eosinophils # (auto) 0 10 ^3/uL (0-0.8); Eosinophils % (auto) 0.3 % (0.0-7.0); Hemoglobin 9.3 g/dL (13.5-17.5); Lymphocytes # (auto) 0.8 10 ^3/uL (0.4-5.4); Lymphocytes % (auto) 10.4 % (10.0-50.0); Mean Corpuscular Hemoglobin 32.5 pg (28.0-32.0); Mean Corpuscular Hgb Conc. 33.2 g/dL (32.0-36.0); Mean Corpuscular Volume 97.8 fL (80.0-100.0); Monocytes # (auto) 0.5 10 ^3/uL (0-1.3); Neutrophils # (auto) 6.2 10 ^3/uL (1.6-8.6); Neutrophils % (auto) 81.9 % (37.0-80.0); Nucleated Red Blood Cells % 0.3 %; Red Blood Cells 2.86 10^6/uL (4.5-5.90); Red Cell Distribution Width 20.5 % (11.8-14.3); White Blood Cell 7.6 10^3/uL (4.4-10.8)
[2020-07-31 18:34] LABS: Albumin 2.3 g/dL (3.4-5.0); Anion Gap 7 (5-15); Blood Urea Nitrogen 11 mg/dL (7-18); Calcium 8.2 mg/dL (8.5-10.1); Carbon Dioxide 24 mmol/L (21-32); Chloride 106 mmol/L (98-107); Glucose 89 mg/dL (74-106); Lipase 13 U/L (73-393); Magnesium 2.3 mg/dL (1.6-2.6); Potassium 4.1 mmol/L (3.5-5.1); Sodium 137 mmol/L (136-145)
[2020-07-31 18:43] LABS: Alanine Aminotransferase 12 U/L (16-61); Alkaline Phosphatase 94 U/L (45-117); Aspartate Aminotransferase 27 U/L (15-37); BUN/Creatinine Ratio 11.1; Bilirubin, Total 0.4 mg/dL (0.2-1.0); CRP High Sensitivity 1.91 mg/dL (< 0.3); GFR African American 95 mL/min; GFR Non-African American 79 mL/min
[2020-07-31] MEDS ORDERED: MORPHINE SULFATE INJECTION 2 MG/ML SYRG IV PRN (21:00)
[2020-07-31] MEDS ORDERED: DOCUSATE SOD 100 MG CAP PO PRN (21:00)
[2020-07-31] MEDS ORDERED: NITROGLYCERIN 0.4 MG SL TAB SL PRN (21:00)
[2020-07-31] MEDS ORDERED: AZITHROMYCIN 500MG/ 250ML 250 ML IV ONE (21:00)
[2020-07-31] MEDS ORDERED: ONDANSETRON HCL 4 MG/2 ML VIAL IV PRN (21:00)
[2020-07-31] MEDS ORDERED: ALBUTEROL SULF 2.5 MG/0.5ML(0.5%) NEB SOLN NEB PRN (21:00)
[2020-07-31] MEDS ORDERED: ACETAMINOPHEN 325 MG TAB PO PRN (21:00)
[2020-07-31 21:57] LABS: Urine Bacteria NONE SEEN /hpf (None Seen); Urine Blood Negative /uL (Negative); Urine Specific Gravity 1.016 (1.001-1.035); Urine WBC 1 /hpf (0 - 3)
[2020-07-31] MEDS: TICAGRELOR 90 MG TAB PO SCH (22:00)
[2020-07-31] MEDS: PRAVASTATIN SODIUM 20 MG TAB PO SCH (23:06)
[2020-08-01 06:46] LABS: Basophils # (auto) 0.1 10 ^3/uL (0-0.2); Basophils % (auto) 1.5 % (0.0-2.0); Eosinophils # (auto) 0 10 ^3/uL (0-0.8); Eosinophils % (auto) 0.2 % (0.0-7.0); Hemoglobin 8.4 g/dL (13.5-17.5); Lymphocytes # (auto) 0.6 10 ^3/uL (0.4-5.4); Lymphocytes % (auto) 13.4 % (10.0-50.0); Mean Corpuscular Hemoglobin 33.6 pg (28.0-32.0); Mean Corpuscular Volume 95.8 fL (80.0-100.0); Monocytes # (auto) 0.5 10 ^3/uL (0-1.3); Monocytes % (auto) 12.2 % (0.0-12.0); Neutrophils # (auto) 3.2 10 ^3/uL (1.6-8.6); Neutrophils % (auto) 72.7 % (37.0-80.0); Nucleated Red Blood Cells % 0.3 %; Red Cell Distribution Width 19.9 % (11.8-14.3); White Blood Cell 4.4 10^3/uL (4.4-10.8)
[2020-08-01 07:04] LABS: Calcium 7.9 mg/dL (8.5-10.1); Potassium 3.8 mmol/L (3.5-5.1)
[2020-08-01] MEDS: FERROUS SULFATE 325mg EC TAB PO SCH ×2 (08:07→17:51)
[2020-08-01] MEDS: TICAGRELOR 90 MG TAB PO SCH ×2 (09:34→21:26)
[2020-08-01] MEDS: PANTOPRAZOLE 40 MG TAB PO SCH (09:35)
[2020-08-01 13:00] VITALS: BP_SYST 150; BP_SYST 151; BP_DIAS 65; BP_DIAS 71
[2020-08-01] MEDS ORDERED: IOHEXOL 350 MG/ML 100ML IJ ONE (13:20)
[2020-08-01 17:00] VITALS: BP 141/82
[2020-08-01] MEDS: TAMSULOSIN HYDROCHLORIDE 0.4 MG CAP PO SCH (17:51)
[2020-08-01] MEDS ORDERED: RIVAROXABAN 20 MG TAB PO SCH (18:00)
[2020-08-01] MEDS: AZITHROMYCIN 500MG/ 250ML 250 ML IV SCH (21:26)
[2020-08-01] MEDS: PRAVASTATIN SODIUM 20 MG TAB PO SCH (21:27)
[2020-08-01 22:00] VITALS: BP 109/61
[2020-08-02 05:00] VITALS: BP 137/77
[2020-08-02] MEDS: FERROUS SULFATE 325mg EC TAB PO SCH ×2 (07:52→18:00)
[2020-08-02 09:00] VITALS: BP 144/75
[2020-08-02] MEDS: TICAGRELOR 90 MG TAB PO SCH ×2 (09:51→21:37)
[2020-08-02] MEDS: PANTOPRAZOLE 40 MG TAB PO SCH (09:51)
[2020-08-02 12:54] VITALS: BP 143/69
[2020-08-02 16:38] VITALS: BP 132/64
[2020-08-02] MEDS: Ensure HIGH Protein Chocolate 8oz Bottle PO SCH (18:00)
[2020-08-02] MEDS: TAMSULOSIN HYDROCHLORIDE 0.4 MG CAP PO SCH (18:00)
[2020-08-02] MEDS: HYDROcodone-ACET 5/325MG TAB PO PRN (19:58)
[2020-08-02] MEDS: PRAVASTATIN SODIUM 20 MG TAB PO SCH (21:37)
[2020-08-02] MEDS: TEMAZEPAM 15 MG CAP PO PRN (21:37)
[2020-08-02] MEDS: AZITHROMYCIN 500MG/ 250ML 250 ML IV SCH (21:37)
[2020-08-02 22:00] VITALS: BP 109/60
[2020-08-03 05:00] VITALS: BP 115/63
[2020-08-03 06:21] LABS: Basophils # (auto) 0 10 ^3/uL (0-0.2); Basophils % (auto) 0.4 % (0.0-2.0); Eosinophils # (auto) 0 10 ^3/uL (0-0.8); Eosinophils % (auto) 0.1 % (0.0-7.0); Hematocrit 24.4 % (41.0-53.0); Hemoglobin 8.6 g/dL (13.5-17.5); Lymphocytes # (auto) 0.6 10 ^3/uL (0.4-5.4); Lymphocytes % (auto) 6.2 % (10.0-50.0); Mean Corpuscular Hemoglobin 33.9 pg (28.0-32.0); Mean Corpuscular Hgb Conc. 35.1 g/dL (32.0-36.0); Mean Corpuscular Volume 96.5 fL (80.0-100.0); Monocytes # (auto) 1.1 10 ^3/uL (0-1.3); Monocytes % (auto) 12.7 % (0.0-12.0); Neutrophils # (auto) 7.2 10 ^3/uL (1.6-8.6); Neutrophils % (auto) 80.6 % (37.0-80.0); Nucleated Red Blood Cells % 0.2 %; Red Blood Cells 2.53 10^6/uL (4.5-5.90); White Blood Cell 8.9 10^3/uL (4.4-10.8)
[2020-08-03 06:43] LABS: Calcium 7.7 mg/dL (8.5-10.1); Potassium 3.4 mmol/L (3.5-5.1)
[2020-08-03 06:47] LABS: Bilirubin, Total 0.6 mg/dL (0.2-1.0)
[2020-08-03] MEDS: TICAGRELOR 90 MG TAB PO SCH ×2 (09:03→21:14)
[2020-08-03] MEDS: FERROUS SULFATE 325mg EC TAB PO SCH ×2 (09:03→17:32)
[2020-08-03] MEDS: PANTOPRAZOLE 40 MG TAB PO SCH (09:04)
[2020-08-03] MEDS: Ensure HIGH Protein Chocolate 8oz Bottle PO SCH ×3 (09:04→17:54)
[2020-08-03 09:06] VITALS: BP 101/66
[2020-08-03] MEDS ORDERED: POTASSIUM CHL 20 Meq TABLET PO ONE (11:45)
[2020-08-03 13:00] VITALS: BP 136/74
[2020-08-03 13:18] VITALS: BP 101/66
[2020-08-03] MEDS: GABAPENTIN 100 MG CAP PO SCH ×2 (13:52→21:14)
[2020-08-03] MEDS: HYDROcodone-ACET 5/325MG TAB PO PRN ×2 (13:57→18:11)
[2020-08-03 16:32] VITALS: BP 104/68
[2020-08-03] MEDS: TAMSULOSIN HYDROCHLORIDE 0.4 MG CAP PO SCH (17:31)
[2020-08-03] MEDS: PRAVASTATIN SODIUM 20 MG TAB PO SCH (21:14)
[2020-08-03] MEDS: cefTRIAXone 1GM/50ML D5W 50 ML IV SCH (21:15)
[2020-08-03] MEDS: TEMAZEPAM 15 MG CAP PO PRN (21:18)
[2020-08-03 22:00] VITALS: BP 112/55
[2020-08-03] MEDS: AZITHROMYCIN 500MG/ 250ML 250 ML IV SCH (22:02)
[2020-08-04 05:00] VITALS: BP 117/61
[2020-08-04 05:28] LABS: Basophils # (auto) 0 10 ^3/uL (0-0.2); Basophils % (auto) 0.2 % (0.0-2.0); Eosinophils # (auto) 0 10 ^3/uL (0-0.8); Hemoglobin 9.2 g/dL (13.5-17.5); Neutrophils # (auto) 6.2 10 ^3/uL (1.6-8.6); Nucleated Red Blood Cells % 0.1 %; White Blood Cell 7.8 10^3/uL (4.4-10.8)
[2020-08-04 05:30] LABS: Eosinophils % (auto) 0.3 % (0.0-7.0); Hematocrit 26.2 % (41.0-53.0); Lymphocytes # (auto) 0.4 10 ^3/uL (0.4-5.4); Lymphocytes % (auto) 5.8 % (10.0-50.0); Monocytes # (auto) 1.1 10 ^3/uL (0-1.3); Monocytes % (auto) 13.8 % (0.0-12.0); Neutrophils % (auto) 79.9 % (37.0-80.0); Red Cell Distribution Width 19.7 % (11.8-14.3)
[2020-08-04 05:57] LABS: Potassium 3.7 mmol/L (3.5-5.1)
[2020-08-04] MEDS: GABAPENTIN 100 MG CAP PO SCH ×3 (05:57→21:02)
[2020-08-04] MEDS: TICAGRELOR 90 MG TAB PO SCH ×2 (05:57→21:02)
[2020-08-04 06:08] LABS: Albumin 2.1 g/dL (3.4-5.0); BUN/Creatinine Ratio 11.9; Bilirubin, Total 0.5 mg/dL (0.2-1.0); Calcium 7.8 mg/dL (8.5-10.1); Total Protein 5.5 g/dL (6.4-8.2)
[2020-08-04] MEDS: FERROUS SULFATE 325mg EC TAB PO SCH ×2 (08:35→17:25)
[2020-08-04] MEDS: PANTOPRAZOLE 40 MG TAB PO SCH (08:35)
[2020-08-04] MEDS: Ensure HIGH Protein Chocolate 8oz Bottle PO SCH ×3 (08:36→18:03)
[2020-08-04 09:00] VITALS: BP 115/62
[2020-08-04] MEDS: HYDROcodone-ACET 5/325MG TAB PO PRN ×3 (09:01→22:09)
[2020-08-04 12:35] VITALS: BP 138/58
[2020-08-04] MEDS ORDERED: IOHEXOL 350 MG/ML 100ML IJ ONE (15:27)
[2020-08-04] MEDS ORDERED: LIDOCAINE 2%HCL (LOCAL ANESTH.) INJ 20ML MDV ONE (15:27)
[2020-08-04] MEDS ORDERED: MIDAZOLAM HCL 2MG/2ML 2ml VIAL (1mg/ml) ONE (15:29)
[2020-08-04] MEDS ORDERED: fentaNYL CITRATE 100 MCG/2 ML VL ONE (15:29)
[2020-08-04] MEDS ORDERED: ANGIOMAX 250 MG VIAL IV ONE (15:29)
[2020-08-04 16:59] VITALS: BP 141/66
[2020-08-04] MEDS: TAMSULOSIN HYDROCHLORIDE 0.4 MG CAP PO SCH (17:25)
[2020-08-04] MEDS: cefTRIAXone 1GM/50ML D5W 50 ML IV SCH (19:58)
[2020-08-04] MEDS: AZITHROMYCIN 500MG/ 250ML 250 ML IV SCH (21:01)
[2020-08-04] MEDS: PRAVASTATIN SODIUM 20 MG TAB PO SCH (21:02)
[2020-08-04 22:00] VITALS: BP 118/68
[2020-08-05] MEDS: HYDROcodone-ACET 5/325MG TAB PO PRN ×4 (04:36→18:31)
[2020-08-05 05:00] VITALS: BP 119/70
[2020-08-05] MEDS: GABAPENTIN 100 MG CAP PO SCH ×3 (06:12→21:01)
[2020-08-05 06:56] LABS: Basophils # (auto) 0 10 ^3/uL (0-0.2); Basophils % (auto) 0.3 % (0.0-2.0); Eosinophils # (auto) 0 10 ^3/uL (0-0.8); Eosinophils % (auto) 0.8 % (0.0-7.0); Hemoglobin 8.6 g/dL (13.5-17.5); Lymphocytes # (auto) 0.6 10 ^3/uL (0.4-5.4); Mean Corpuscular Hemoglobin 33.9 pg (28.0-32.0); Mean Corpuscular Hgb Conc. 34.3 g/dL (32.0-36.0); Mean Corpuscular Volume 98.7 fL (80.0-100.0); Monocytes # (auto) 0.8 10 ^3/uL (0-1.3); Monocytes % (auto) 13.8 % (0.0-12.0); Neutrophils # (auto) 4.4 10 ^3/uL (1.6-8.6); Neutrophils % (auto) 75.1 % (37.0-80.0); Red Blood Cells 2.54 10^6/uL (4.5-5.90); White Blood Cell 5.9 10^3/uL (4.4-10.8)
[2020-08-05 06:58] LABS: Red Cell Distribution Width 20.7 % (11.8-14.3)
[2020-08-05 07:15] LABS: Potassium 3.8 mmol/L (3.5-5.1)
[2020-08-05 07:20] LABS: BUN/Creatinine Ratio 14.3; Bilirubin, Total 0.6 mg/dL (0.2-1.0); Calcium 7.9 mg/dL (8.5-10.1); Total Protein 5.2 g/dL (6.4-8.2)
[2020-08-05] MEDS: Ensure HIGH Protein Chocolate 8oz Bottle PO SCH ×4 (08:20→18:28)
[2020-08-05 08:23] VITALS: BP 119/70
[2020-08-05 09:00] VITALS: BP 117/70
[2020-08-05] MEDS: TICAGRELOR 90 MG TAB PO SCH ×2 (09:40→21:01)
[2020-08-05] MEDS: PANTOPRAZOLE 40 MG TAB PO SCH (09:40)
[2020-08-05] MEDS: FERROUS SULFATE 325mg EC TAB PO SCH ×2 (09:41→18:28)
[2020-08-05 13:00] VITALS: BP 136/80
[2020-08-05 16:37] VITALS: BP 136/67
[2020-08-05] MEDS: TAMSULOSIN HYDROCHLORIDE 0.4 MG CAP PO SCH (18:28)
[2020-08-05] MEDS: cefTRIAXone 1GM/50ML D5W 50 ML IV SCH (19:44)
[2020-08-05] MEDS: AZITHROMYCIN 500MG/ 250ML 250 ML IV SCH (21:00)
[2020-08-05] MEDS: PRAVASTATIN SODIUM 20 MG TAB PO SCH (21:01)
[2020-08-05 22:00] VITALS: BP 147/61
[2020-08-06 05:00] VITALS: BP 128/79
[2020-08-06] MEDS: GABAPENTIN 100 MG CAP PO SCH ×3 (06:52→21:45)
[2020-08-06] MEDS: TICAGRELOR 90 MG TAB PO SCH ×2 (08:18→21:44)
[2020-08-06] MEDS: Ensure HIGH Protein Chocolate 8oz Bottle PO SCH ×2 (08:19→12:00)
[2020-08-06] MEDS: FERROUS SULFATE 325mg EC TAB PO SCH ×2 (08:19→16:38)
[2020-08-06] MEDS: PANTOPRAZOLE 40 MG TAB PO SCH (08:19)
[2020-08-06] MEDS: HYDROcodone-ACET 5/325MG TAB PO PRN ×3 (08:19→21:55)
[2020-08-06 08:26] VITALS: BP 143/78
[2020-08-06 10:43] VITALS: BP 143/78
[2020-08-06 13:00] VITALS: BP 129/73
[2020-08-06] MEDS: TAMSULOSIN HYDROCHLORIDE 0.4 MG CAP PO SCH (16:38)
[2020-08-06] MEDS: cefTRIAXone 1GM/50ML D5W 50 ML IV SCH (20:30)
[2020-08-06] MEDS: AZITHROMYCIN 500MG/ 250ML 250 ML IV SCH (21:44)
[2020-08-06] MEDS: PRAVASTATIN SODIUM 20 MG TAB PO SCH (21:44)
[2020-08-06 22:00] VITALS: BP 128/70
[2020-08-07 05:00] VITALS: BP 123/63
[2020-08-07] MEDS: GABAPENTIN 100 MG CAP PO SCH ×2 (05:34→13:52)
[2020-08-07] MEDS: HYDROcodone-ACET 5/325MG TAB PO PRN ×2 (05:39→11:18)
[2020-08-07 08:00] VITALS: BP 138/75
[2020-08-07] MEDS: Ensure HIGH Protein Chocolate 8oz Bottle PO SCH ×2 (08:00→12:00)
[2020-08-07] MEDS: TICAGRELOR 90 MG TAB PO SCH (08:37)
[2020-08-07] MEDS: FERROUS SULFATE 325mg EC TAB PO SCH (08:37)
[2020-08-07] MEDS: PANTOPRAZOLE 40 MG TAB PO SCH (08:38)
[2020-08-07 09:00] VITALS: BP 138/75
[2020-08-07 13:00] VITALS: BP 118/71
[2020-08-07 16:42] VITALS: BP 114/70
== END 2020-08-07 18:00 | disposition home or self-care (01) | DRG 193 ==
LOC: ER 14:48 → TELE 20:56 → TELE-WESTW 08-01 08:47
PROVIDERS: ADMIT Nurse Practitioner; ATTEND Family Medicine
PROC: 06H03DZ Insertion of Intraluminal Device into Inferior Vena Cava, Percutaneous Approach (ICD-10-PCS; principal; 2020-08-04)
DX: J18.9 Pneumonia, unspecified organism (principal); E43 Unspecified severe protein-calorie malnutrition; J96.21 Acute and chronic respiratory failure with hypoxia; C78.00 Secondary malignant neoplasm of unspecified lung; C78.7 Secondary malignant neoplasm of liver and intrahepatic bile duct; C25.9 Malignant neoplasm of pancreas, unspecified; I82.419 Acute embolism and thrombosis of unspecified femoral vein; Z20.822 Contact with and (suspected) exposure to COVID-19; D64.9 Anemia, unspecified; I25.10 Atherosclerotic heart disease of native coronary artery without angina pectoris; D63.8 Anemia in other chronic diseases classified elsewhere; G62.9 Polyneuropathy, unspecified; I11.9 Hypertensive heart disease without heart failure; R79.89 Other specified abnormal findings of blood chemistry; J43.2 Centrilobular emphysema; K21.9 Gastro-esophageal reflux disease without esophagitis; N40.0 Benign prostatic hyperplasia without lower urinary tract symptoms; Z79.01 Long term (current) use of anticoagulants; Z79.02 Long term (current) use of antithrombotics/antiplatelets; Z85.05 Personal history of malignant neoplasm of liver; I25.2 Old myocardial infarction; Z86.718 Personal history of other venous thrombosis and embolism; Z86.16 Personal history of COVID-19; Z85.07 Personal history of malignant neoplasm of pancreas; Z87.01 Personal history of pneumonia (recurrent); Z87.442 Personal history of urinary calculi; Z87.891 Personal history of nicotine dependence; Z92.21 Personal history of antineoplastic chemotherapy; Z95.5 Presence of coronary angioplasty implant and graft; Z95.828 Presence of other vascular implants and grafts; Z79.899 Other long term (current) drug therapy; Z79.891 Long term (current) use of opiate analgesic; Z68.20 Body mass index [BMI] 20.0-20.9, adult
CPT/HCPCS: 36415; 37191; 71045; 71275; 80048; 80053; 81001; 82728; 83690; 83735; 83880; 84484; 85025; 85049; 85379; 86141; 87426; 93005; 93925; 93970; 96365; 99152; G0378; J0696; J2250

== ENCOUNTER 2020-09-09 13:29 | Emergency (ER) | payer OTHER ==
[~2020-09-09] VITALS: Ht 177.8 cm; Wt 65.3 kg
[~2020-09-09 13:29] MED LIST changes: -CHOL1CAP47 PO; -FER325T PO; -MIRT1TAB38 PO; -NITR0.4D5 TD; -OXYM0.0579; -PANT40TA2 PO; -PRAV20TA3 PO; -RIVSET PO; -UMEC1AER IN
[2020-09-09 15:25] LABS: Eosinophils # (auto) 0.1 10 ^3/uL (0-0.8); Mean Corpuscular Volume 101.5 fL (80.0-100.0); Monocytes # (auto) 0.1 10 ^3/uL (0-1.3); Nucleated Red Blood Cells % 0.1 %; Red Blood Cells 2.87 10^6/uL (4.5-5.90)
[2020-09-09 15:27] LABS: Basophils # (auto) 0 10 ^3/uL (0-0.2); Basophils % (auto) 0.9 % (0.0-2.0); Eosinophils % (auto) 1.1 % (0.0-7.0); Hematocrit 29.2 % (41.0-53.0); Hemoglobin 10.1 g/dL (13.5-17.5); Lymphocytes # (auto) 0.5 10 ^3/uL (0.4-5.4); Lymphocytes % (auto) 10.1 % (10.0-50.0); Mean Corpuscular Hemoglobin 35.2 pg (28.0-32.0); Mean Corpuscular Hgb Conc. 34.7 g/dL (32.0-36.0); Monocytes % (auto) 2.5 % (0.0-12.0); Neutrophils # (auto) 4.4 10 ^3/uL (1.6-8.6); Neutrophils % (auto) 85.4 % (37.0-80.0); Red Cell Distribution Width 18.7 % (11.8-14.3); White Blood Cell 5.1 10^3/uL (4.4-10.8)
[2020-09-09 15:48] LABS: Albumin 2.4 g/dL (3.4-5.0); Anion Gap 3 (5-15); Blood Urea Nitrogen 14 mg/dL (7-18); Calcium 8.4 mg/dL (8.5-10.1); Carbon Dioxide 28 mmol/L (21-32); Chloride 105 mmol/L (98-107); Glucose 90 mg/dL (74-106); Potassium 4.1 mmol/L (3.5-5.1); Sodium 136 mmol/L (136-145)
[2020-09-09 15:54] LABS: Alanine Aminotransferase 17 U/L (16-61); Alkaline Phosphatase 97 U/L (45-117); Aspartate Aminotransferase 24 U/L (15-37); BUN/Creatinine Ratio 17.5; Bilirubin, Total 0.6 mg/dL (0.2-1.0); GFR African American 122 mL/min; GFR Non-African American 100 mL/min; Total Protein 6.7 g/dL (6.4-8.2)
[2020-09-09 17:24] VITALS: BP 126/82
== END 2020-09-09 18:08 | disposition home or self-care (01) ==
LOC: ER 13:29
DX: D64.9 Anemia, unspecified (principal); E43 Unspecified severe protein-calorie malnutrition; J44.9 Chronic obstructive pulmonary disease, unspecified; K21.9 Gastro-esophageal reflux disease without esophagitis; I10 Essential (primary) hypertension; Z87.442 Personal history of urinary calculi; Z68.20 Body mass index [BMI] 20.0-20.9, adult
CPT/HCPCS: 36415; 80053; 84484; 85025; 86850; 86900; 86901; 93005

== ENCOUNTER 2020-10-09 16:46 | Emergency (ER) | payer OTHER ==
[~2020-10-09] VITALS: Ht 182.9 cm; Wt 77.1 kg
[2020-10-09 19:35] VITALS: BP 170/89
== END 2020-10-10 03:18 | disposition home or self-care (01) ==
LOC: EDBD 16:46 → EDSEX 16:46 → ER 16:46
DX: J44.1 Chronic obstructive pulmonary disease with (acute) exacerbation (principal); I25.10 Atherosclerotic heart disease of native coronary artery without angina pectoris; K21.9 Gastro-esophageal reflux disease without esophagitis; I10 Essential (primary) hypertension; I25.2 Old myocardial infarction
CPT/HCPCS: 71045; 93005

== ENCOUNTER 2020-10-13 08:13 | Inpatient (IN) | payer OTHER ==
[~2020-10-13] VITALS: Ht 172.7 cm; Wt 73.7 kg
[2020-10-13 10:22] LABS: Basophils # (auto) 0.1 10 ^3/uL (0-0.2); Basophils % (auto) 0.8 % (0.0-2.0); Eosinophils # (auto) 0.1 10 ^3/uL (0-0.8); Eosinophils % (auto) 0.6 % (0.0-7.0); Hematocrit 29.5 % (41.0-53.0); Lymphocytes # (auto) 0.6 10 ^3/uL (0.4-5.4); Mean Corpuscular Hemoglobin 33.6 pg (28.0-32.0); Mean Corpuscular Volume 98.8 fL (80.0-100.0); Monocytes # (auto) 0.9 10 ^3/uL (0-1.3); Monocytes % (auto) 10.3 % (0.0-12.0); Neutrophils # (auto) 6.9 10 ^3/uL (1.6-8.6); Neutrophils % (auto) 81.3 % (37.0-80.0); Red Blood Cells 2.99 10^6/uL (4.5-5.90); Red Cell Distribution Width 18.5 % (11.8-14.3); White Blood Cell 8.5 10^3/uL (4.4-10.8)
[2020-10-13 10:36] LABS: Albumin 2.2 g/dL (3.4-5.0); Potassium 3.6 mmol/L (3.5-5.1)
[2020-10-13 10:42] LABS: BUN/Creatinine Ratio 9.9; Bilirubin, Total 1.4 mg/dL (0.2-1.0); Total Protein 5.7 g/dL (6.4-8.2)
[2020-10-13] MEDS ORDERED: ENOXAPARIN SOD 80 MG/0.8ML SYRINGE SC ONE (12:15)
[2020-10-13] MEDS ORDERED: TPN PER PHARMACY 0 ML IV SCH ×2 (13:15→17:15)
[2020-10-13] MEDS ORDERED: NITROGLYCERIN 0.4 MG SL TAB SL PRN (13:15)
[2020-10-13] MEDS ORDERED: DOCUSATE CALCIUM 240 MG CAP PO PRN (13:15)
[2020-10-13] MEDS ORDERED: MORPHINE SULFATE INJECTION 2 MG/ML SYRG IV PRN (13:15)
[2020-10-13] MEDS ORDERED: LABETALOL HCL 5 MG/ML 4ML SYRINGE IV PRN (13:15)
[2020-10-13] MEDS ORDERED: ONDANSETRON HCL 4 MG/2 ML VIAL IV PRN (13:15)
[2020-10-13] MEDS ORDERED: LORazepam 0.5 MG TAB PO PRN (13:15)
[2020-10-13 14:26] LABS: Phosphorus 3.2 mg/dL (2.5-4.90)
[2020-10-13 14:30] LABS: Pre Albumin 7.8 mg/dL (20.0-40.0)
[2020-10-13 15:52] LABS: INR 1.2 (0.9-1.15)
[2020-10-13] MEDS ORDERED: PPN PER PHARMACY 0 ML IV SCH (16:30)
[2020-10-13] MEDS ORDERED: LABETALOL HCL 5 MG/ML 4ML SYRINGE IV ONE (16:30)
[2020-10-13] MEDS ORDERED: AMINO ACID INFUSION IN D10W 1,000 ML IV NR (16:34)
[2020-10-13] MEDS: AMINO ACID INFUSION IN D10W 1,000 ML IV NR (17:00)
[2020-10-13] MEDS: hydrALAZINE HCL 20 MG/ML VL IV PRN (18:47)
[2020-10-13] MEDS: IPRATROPIUM BROM 0.5 MG/2.5ML INH SOL NEB PRN (19:40)
[2020-10-13] MEDS: ALBUTEROL SULF 2.5 MG/0.5ML(0.5%) NEB SOLN NEB PRN (19:40)
[2020-10-13] MEDS: BUDESONIDE (INHALATION) 0.5 MG/2 ML NEB NEB SCH (19:41)
[2020-10-13] MEDS: MORPHINE SULFATE INJECTION 2 MG/ML SYRG IV PRN (20:53)
[2020-10-14] MEDS ORDERED: DEXTROSE (50%) 50ML SYRG IV SCH ×2
[2020-10-14] MEDS ORDERED: ACCU-CHEK COMFORT CURVE STRIP VI SCH
[2020-10-14] MEDS ORDERED: InsuLIN REG 1unit/0.01ml Soln (100units/ml) SC SCH
[2020-10-14] MEDS: ACCU-CHEK COMFORT CURVE STRIP VI SCH ×4 (00:18→18:41)
[2020-10-14 00:30] VITALS: BP 138/78
[2020-10-14 00:49] LABS: Calcium 7.9 mg/dL (8.5-10.1); Potassium 3.5 mmol/L (3.5-5.1)
[2020-10-14 00:57] LABS: BUN/Creatinine Ratio 10.5; Total Protein 5.5 g/dL (6.4-8.2)
[2020-10-14 01:04] LABS: Bilirubin, Total 1.2 mg/dL (0.2-1.0)
[2020-10-14 05:17] VITALS: BP 155/96
[2020-10-14] MEDS: InsuLIN REG 1unit/0.01ml Soln (100units/ml) SC SCH ×4 (05:59→18:00)
[2020-10-14 06:11] LABS: Basophils # (auto) 0 10 ^3/uL (0-0.2); Basophils % (auto) 0.6 % (0.0-2.0); Eosinophils # (auto) 0.1 10 ^3/uL (0-0.8); Eosinophils % (auto) 1.1 % (0.0-7.0); Hemoglobin 9.5 g/dL (13.5-17.5); Lymphocytes # (auto) 0.5 10 ^3/uL (0.4-5.4); Lymphocytes % (auto) 8.1 % (10.0-50.0); Mean Corpuscular Hemoglobin 33.7 pg (28.0-32.0); Mean Corpuscular Hgb Conc. 33.8 g/dL (32.0-36.0); Mean Corpuscular Volume 99.7 fL (80.0-100.0); Monocytes # (auto) 0.8 10 ^3/uL (0-1.3); Neutrophils # (auto) 5.2 10 ^3/uL (1.6-8.6); Neutrophils % (auto) 78.2 % (37.0-80.0); Red Blood Cells 2.81 10^6/uL (4.5-5.90); Red Cell Distribution Width 18.5 % (11.8-14.3); White Blood Cell 6.6 10^3/uL (4.4-10.8)
[2020-10-14 06:20] LABS: Magnesium 1.8 mg/dL (1.6-2.6)
[2020-10-14 06:24] LABS: Phosphorus 4.4 mg/dL (2.5-4.90)
[2020-10-14] MEDS: BUDESONIDE (INHALATION) 0.5 MG/2 ML NEB NEB SCH ×2 (07:21→20:56)
[2020-10-14 09:00] VITALS: BP 135/73
[2020-10-14] MEDS: PANTOPRAZOLE 40 MG TAB PO SCH (09:32)
[2020-10-14] MEDS: ENOXAPARIN SOD 40 MG/0.4 ML SYRINGE SC SCH (09:32)
[2020-10-14] MEDS: MORPHINE SULFATE INJECTION 2 MG/ML SYRG IV PRN ×2 (09:41→19:11)
[2020-10-14] MEDS ORDERED: MORP1TAB12 PO (10:55)
[2020-10-14] MEDS ORDERED: OXY5T PO (10:55)
[2020-10-14] MEDS ORDERED: POTASSIUM CHL 20MEQ/100ML 100 ML IV ONE (12:00)
[2020-10-14] MEDS: AMINO ACID INFUSION IN D10W 1,000 ML IV NR (12:45)
[2020-10-14 13:00] VITALS: BP 149/83
[2020-10-14 16:44] VITALS: BP 155/80
[2020-10-14] MEDS ORDERED: TPN PER PHARMACY IV NR ×9 (20:00)
[2020-10-14 22:00] VITALS: BP 159/79
[2020-10-15] MEDS: InsuLIN REG 1unit/0.01ml Soln (100units/ml) SC SCH ×3 (00:30→11:41)
[2020-10-15] MEDS: ACCU-CHEK COMFORT CURVE STRIP VI SCH ×3 (00:30→11:40)
[2020-10-15] MEDS: MORPHINE SULFATE INJECTION 2 MG/ML SYRG IV PRN ×4 (03:53→14:05)
[2020-10-15 05:00] VITALS: BP 164/83
[2020-10-15] MEDS: BUDESONIDE (INHALATION) 0.5 MG/2 ML NEB NEB SCH (06:09)
[2020-10-15] MEDS: ALBUTEROL SULF 2.5 MG/0.5ML(0.5%) NEB SOLN NEB PRN (06:09)
[2020-10-15] MEDS: IPRATROPIUM BROM 0.5 MG/2.5ML INH SOL NEB PRN (06:09)
[2020-10-15 08:10] LABS: Basophils # (auto) 0 10 ^3/uL (0-0.2); Basophils % (auto) 0.7 % (0.0-2.0); Eosinophils # (auto) 0.1 10 ^3/uL (0-0.8); Hemoglobin 9.5 g/dL (13.5-17.5); Lymphocytes # (auto) 0.5 10 ^3/uL (0.4-5.4); Lymphocytes % (auto) 6.7 % (10.0-50.0); Mean Corpuscular Hemoglobin 32.6 pg (28.0-32.0); Mean Corpuscular Hgb Conc. 32.9 g/dL (32.0-36.0); Mean Corpuscular Volume 99.1 fL (80.0-100.0); Monocytes # (auto) 0.6 10 ^3/uL (0-1.3); Monocytes % (auto) 9.3 % (0.0-12.0); Neutrophils # (auto) 5.5 10 ^3/uL (1.6-8.6); Neutrophils % (auto) 82.3 % (37.0-80.0); Red Blood Cells 2.93 10^6/uL (4.5-5.90); Red Cell Distribution Width 17.8 % (11.8-14.3); White Blood Cell 6.7 10^3/uL (4.4-10.8)
[2020-10-15 08:23] LABS: Albumin 2.1 g/dL (3.4-5.0); Calcium 8.1 mg/dL (8.5-10.1); Magnesium 1.9 mg/dL (1.6-2.6); Potassium 3.7 mmol/L (3.5-5.1)
[2020-10-15 08:25] LABS: BUN/Creatinine Ratio 12.2
[2020-10-15 08:39] LABS: Bilirubin, Total 1.3 mg/dL (0.2-1.0); Phosphorus 3.3 mg/dL (2.5-4.90); Total Protein 5.5 g/dL (6.4-8.2)
[2020-10-15 09:00] VITALS: BP 151/80
[2020-10-15] MEDS: ENOXAPARIN SOD 40 MG/0.4 ML SYRINGE SC SCH (09:36)
[2020-10-15] MEDS: PANTOPRAZOLE 40 MG TAB PO SCH (09:36)
[2020-10-15] MEDS: hydrALAZINE HCL 20 MG/ML VL IV PRN (09:37)
[2020-10-15 11:13] VITALS: BP 148/61
[2020-10-15 13:00] VITALS: BP 134/83
[2020-10-15 17:00] VITALS: BP 156/87
[2020-10-15] MEDS ORDERED: TPN PER PHARMACY IV NR ×11 (20:00)
[2020-10-17 12:02] LABS: Hepatitis B Surface Antibody Positive
[2020-10-17 12:35] LABS: Hepatitis A Total Antibody Positive
[2020-10-17 13:14] LABS: Hepatitis B Core Total AB Negative; Hepatitis B Surface Antigen Negative (Negative); Hepatitis C Antibody Negative (Negative)
== END 2020-10-15 17:45 | disposition home or self-care (01) | DRG 280 ==
LOC: ER 08:13 → TELE 13:09 → TELE-WESTW 23:24
PROVIDERS: ADMIT Family Medicine; ATTEND Family Medicine
DX: I21.4 Non-ST elevation (NSTEMI) myocardial infarction (principal); J96.91 Respiratory failure, unspecified with hypoxia; C78.7 Secondary malignant neoplasm of liver and intrahepatic bile duct; C25.9 Malignant neoplasm of pancreas, unspecified; E46 Unspecified protein-calorie malnutrition; D64.9 Anemia, unspecified; E86.0 Dehydration; I10 Essential (primary) hypertension; I25.10 Atherosclerotic heart disease of native coronary artery without angina pectoris; Z20.822 Contact with and (suspected) exposure to COVID-19; K21.9 Gastro-esophageal reflux disease without esophagitis; J44.9 Chronic obstructive pulmonary disease, unspecified; Z86.16 Personal history of COVID-19; Z59.0 Homelessness; Z87.442 Personal history of urinary calculi; Z87.891 Personal history of nicotine dependence; Z92.21 Personal history of antineoplastic chemotherapy; Z95.5 Presence of coronary angioplasty implant and graft; Z95.828 Presence of other vascular implants and grafts; Z68.24 Body mass index [BMI] 24.0-24.9, adult
CPT/HCPCS: 36415; 71045; 74176; 80053; 82040; 82962; 83690; 83735; 83880; 84100; 84443; 84478; 84484; 85025; 85379; 85610; 86704; 86706; 86708; 86803; 87081; 87340; 87426; 93005; 94640; 96372; 96374; 96375; G0378; J2405; J3490; J7131

== ENCOUNTER → 2021-01-03 | Emergency (ER) | payer OTHER ==
[~2021-01-03] VITALS: Ht 177.8 cm; Wt 11.3 kg
[~2021-01-03] MED LIST changes: +MORP1TAB12 PO; +MORPHINE SULF 30 mg ER tab PO ONE; +OXY5T PO
[2021-01-03 14:38] LABS: Albumin 2.1 g/dL (3.4-5.0); BUN/Creatinine Ratio 28.6; Calcium 7.9 mg/dL (8.5-10.1); Potassium 4.7 mmol/L (3.5-5.1)
[2021-01-03 14:46] VITALS: BP 106/59
[2021-01-03 14:47] LABS: Bilirubin, Total 0.9 mg/dL (0.2-1.0); Total Protein 6.2 g/dL (6.4-8.2)
== END | disposition home or self-care (01) ==
LOC: ER 11:44
DX: I82.4Z2 Acute embolism and thrombosis of unspecified deep veins of left distal lower extremity (principal); C25.9 Malignant neoplasm of pancreas, unspecified; C22.9 Malignant neoplasm of liver, not specified as primary or secondary; E43 Unspecified severe protein-calorie malnutrition; I12.9 Hypertensive chronic kidney disease with stage 1 through stage 4 chronic kidney disease, or unspecified chronic kidney disease; N18.30 Chronic kidney disease, stage 3 unspecified; I25.10 Atherosclerotic heart disease of native coronary artery without angina pectoris; J44.9 Chronic obstructive pulmonary disease, unspecified; K21.9 Gastro-esophageal reflux disease without esophagitis; I25.2 Old myocardial infarction; Z68.1 Body mass index [BMI] 19.9 or less, adult; Z79.899 Other long term (current) drug therapy
CPT/HCPCS: 36415; 80053; 93971